=== PATIENT | male | born 2000 | race African-American/Black ===

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

== ENCOUNTER 2018-03-04 20:56 | Emergency (ER) | payer BC ==
[2018-03-04 21:21] VITALS: PULSE 97; RESP 18
[2018-03-04] MEDS ORDERED: metroNIDAZOLE 500 MG TAB PO STA (21:53)
[2018-03-04] MEDS ORDERED: AZITHROMYCIN 500 MG TAB PO STA (21:53)
[2018-03-04] MEDS ORDERED: cefTRIAXone 250 MG VIAL IM STA (21:53)
[2018-03-04 22:12] LABS: Appearance,Urine Clear (Clear); Bilirubin,Urine Negative (Negative); Blood,Urine Negative (Negative); Color,Urine Light Yellow; Glucose,Urine (UA) Negative (Negative); Ketones,Urine Negative (Negative); Leukocyte Esterase,Urine Negative (Negative); Nitrite,Urine Negative (Negative); Protein,Urine Negative (Negative); Specific Gravity,Urine 1.007 (1.001-1.035); Urobilinogen,Urine <2.0 mg/dL (<2.0)
--- NOTE | 2018-03-04 22:20 | ED ---
Male Urogenital HPI - General Chief complaint: Urogenital Stated complaint: Urogenital Time Seen by Provider: 03/04/18 21:53 Source: patient Mode of arrival: ambulatory Limitations: no limitations - History of Present Illness Initial comments: Patient is a 17-year-old male who presents to the emergency department today for sexual transmitted infections testing and treatment. Patient was notified by his sexual partner that she was positive for gonorrhea and advised to come to the hospital for evaluation. Patient was treated for an area months ago, he does report that he has been experiencing some dysuria for the past few weeks. He denies any penile discharge. Patient denies any other complaints. - Related Data Home Medications Medication Instructions Recorded Confirmed No Known Home Medications [No 03/04/18 03/04/18 Known Home Medications] Allergies Allergy/AdvReac Type Severity Reaction Status Date / Time shellfish derived [Shrimp] Allergy Anaphylaxis Verified 03/04/18 21:55 Review of Systems ROS Statement: Those systems with pertinent positive or pertinent negative responses have been documented in the HPI. ROS Other: All systems not noted in ROS Statement are negative. Past Medical History Past Medical History: Asthma History of Any Multi-Drug Resistant Organisms: None Reported Past Surgical History: No Surgical Hx Reported Past Psychological History: No Psychological Hx Reported Smoking Status: Never smoker Past Alcohol Use History: None Reported Past Drug Use History: None Reported General Exam Limitations: no limitations General appearance: alert, in no apparent distress Head exam: Present: atraumatic, normocephalic Eye exam: Present: normal appearance, PERRL ENT exam: Present: normal exam Neck exam: Present: normal inspection Respiratory exam: Absent: respiratory distress Cardiovascular Exam: Present: regular rate GI/Abdominal exam: Absent: distended Rectal exam: Present: deferred Extremities exam: Present: full ROM Back exam: Present: full ROM Neurological exam: Present: alert, oriented X3, normal gait Psychiatric exam: Present: normal affect, normal mood Skin exam: Present: warm, dry Course Vital Signs 03/04/18 21:18 Temperature 99.4 F Pulse Rate 97 Respiratory 18 Rate Blood Pressure 129/62 O2 Sat by Pulse 100 Oximetry Medical Decision Making - Medical Decision Making The patient was seen and examined, patient previously treated for gonorrhea, now his sexual partner was positive for gonorrhea. Patient requesting testing and treatment. Gonorrhea and chlamydia PCR is were ordered Rocephin, azithromycin and Flagyl were ordered for treatment Patient was advised to abstain from sexual intercourse for 7 days after treatment. He was encouraged to follow up with the health department for repeat testing to ensure that he is negative after treatment. All questions pertaining to care were answered the best my ability patient was discharged home in stable condition. - Lab Data Lab Results 03/04/18 Range/Units 21:55 Urine Color Light Yellow Urine Appearance Clear (Clear) Urine pH 7.0 (5.0-8.0) Ur Specific [place] 1.007 (1.001-1.035) Urine Protein Negative (Negative) Urine Glucose (UA) Negative (Negative) Urine Ketones Negative (Negative) Urine Blood Negative (Negative) Urine Nitrite Negative (Negative) Urine Bilirubin Negative (Negative) Urine Urobilinogen <2.0 (<2.0) mg/dL Ur Leukocyte Esterase Negative (Negative) Disposition Clinical Impression: Exposure to sexually transmitted disease (STD) Disposition: HOME SELF-CARE Condition: Good Instructions: Sexually Transmitted Diseases (ED), Condom Use (ED), Safe Sex (ED ) Is patient prescribed a controlled substance at d/c from ED?: No If prescribed controlled substance>3 days was MAPS reviewed?: No When asked, does pt state using other controlled substances?: No Referrals: Leticia Arteaga MD [Primary Care Provider] - 1-2 days Time of Disposition: 23:04
[2018-03-04 23:05] VITALS: BP 120/61; TEMP 98.4
[2018-03-07 13:35] LABS: C. trachomatis,PCR Negative (Neg,Equiv); Chlamydia trachomatis Source Urine
[2018-03-07 13:37] LABS: N. gonorrhoeae,PCR Negative (Neg,Equiv); Neisseria Source Urine
== END 2018-03-04 23:09 | disposition home or self-care (01) ==
LOC: EC 20:56
DX: Z20.2 Contact with and (suspected) exposure to infections with a predominantly sexual mode of transmission (principal); R30.0 Dysuria; Z91.013 Allergy to seafood
CPT/HCPCS: 81003; 87491; 87591; 99283; 96372; J0696

== ENCOUNTER 2018-07-22 19:22 | Emergency (ER) | payer BC ==
[2018-07-22] MEDS ORDERED: ACETAMINOPHEN TAB 500 MG TAB PO STA (20:22)
[2018-07-22] MEDS ORDERED: IBUPROFEN 800 MG TAB PO STA (20:22)
--- NOTE | 2018-07-22 21:19 | XR ---
EXAMINATION TYPE: XR chest 2V DATE OF EXAM: 07/22/2018 COMPARISON: NONE HISTORY: Cough TECHNIQUE: Frontal and lateral views of the chest are obtained. FINDINGS: Heart and mediastinum are normal. Lungs are clear. Diaphragm is normal. Bony thorax appear s normal. IMPRESSION: Normal chest
[2018-07-22 22:29] VITALS: BP 120/55; PULSE 95; RESP 16; TEMP 100.6
--- NOTE | 2018-07-22 22:34 | ED ---
General Adult HPI - General Source: patient, RN notes reviewed Mode of arrival: ambulatory Limitations: no limitations <Ambrose Gamble P - Last Filed: 07/22/18 22:34> <Claire Antunez P - Last Filed: 07/23/18 02:42> - General Chief complaint: Upper Respiratory Infection Stated complaint: cough Time Seen by Provider: 07/22/18 19:58 - History of Present Illness Initial comments: 17-year-old male presents for a chief complaint of cold symptoms 3 hours. Patient states that 3 hours ago he started to develop sinus pressure, sore throat, and cough. Patient states he does have history of asthma. Patient denies productive cough and states it is dry. Patient has not had Motrin or Tylenol as of yet. Patient denies any abdominal pain. Patient has no other complaints at this time including shortness of breath, chest pain, abdominal pain, nausea or vomiting, headache, or visual changes. (Ambrose Gamble) - Related Data Previous Rx's Medication Instructions Recorded predniSONE 50 mg PO DAILY #3 tab 07/22/18 Allergies Allergy/AdvReac Type Severity Reaction Status Date / Time shellfish derived [Shrimp] Allergy Anaphylaxis Verified 07/22/18 20:01 Review of Systems ROS Other: All systems not noted in ROS Statement are negative. <Ambrose Gamble - Last Filed: 07/22/18 22:34> ROS Other: All systems not noted in ROS Statement are negative. <Claire Antunez P - Last Filed: 07/23/18 02:42> ROS Statement: Those systems with pertinent positive or pertinent negative responses have been documented in the HPI. Past Medical History Past Medical History: Asthma History of Any Multi-Drug Resistant Organisms: None Reported Past Surgical History: No Surgical Hx Reported Past Psychological History: No Psychological Hx Reported Smoking Status: Never smoker Past Alcohol Use History: None Reported Past Drug Use History: Marijuana <Ambrose Gamble P - Last Filed: 07/22/18 22:34> General Exam Limitations: no limitations General appearance: alert, in no apparent distress (Patient sitting up in bed alert and interactive) Head exam: Present: atraumatic, normocephalic, normal inspection Eye exam: Present: normal appearance, PERRL, EOMI. Absent: scleral icterus, conjunctival injection, periorbital swelling ENT exam: Present: normal oropharynx (Erythematous oropharynx, uvula midline, no tonsillar exudates noted bilaterally), mucous membranes moist, TM's normal bilaterally, normal external ear exam, other (Patient does appear nasally congested) Neck exam: Present: normal inspection, full ROM. Absent: tenderness, meningismus, lymphadenopathy Respiratory exam: Present: normal lung sounds bilaterally. Absent: respiratory distress, wheezes, rales, rhonchi, stridor Cardiovascular Exam: Present: regular rate, normal rhythm, normal heart sounds. Absent: systolic murmur, diastolic murmur, rubs, gallop, clicks GI/Abdominal exam: Present: soft, normal bowel sounds. Absent: distended, tenderness, guarding, rebound, rigid Extremities exam: Present: full ROM (Moving all extremities without difficulty) Neurological exam: Present: alert, oriented X3, CN II-XII intact Psychiatric exam: Present: normal affect, normal mood Skin exam: Present: warm, dry, intact, normal color. Absent: rash <Ambrose Gamble P - Last Filed: 07/22/18 22:34> Vital Signs 07/22/18 07/22/18 19:33 22:28 Temperature 102.3 F H 100.6 F H Pulse Rate 112 H 95 Respiratory 18 16 Rate Blood Pressure 104/58 120/55 O2 Sat by Pulse 98 97 Oximetry Medical Decision Making <Ambrsoe Gamble P - Last Filed: 07/22/18 22:34> <Claire Antunez P - Last Filed: 07/23/18 02:42> - Medical Decision Making 17-year-old male presents to the emergency department for a chief complaint of cough, congestion, sore throat 3 hours. Patient states all his symptoms started to occur after work. Patient denies any shortness of breath. Patient does have a history of asthma. No wheezing noted on exam. Oropharynx is erythematous without tonsillar exudates. Uvula midline. Tympanic membranes clear bilaterally. Temperature was 102.3 with a pulse rate of 112 on presentation to the emergency department. Patient was given Motrin and Tylenol and temperature decreased to 100.6 and pulse rate decreased to 95. Chest x-ray was negative for any pneumonia. Lungs are clear. Group A strep was negative. This patient does have a history of asthma he will be given a three-day course of prednisone. Heterophile is also drawn and patient will be contacted about results as he would rather do this instead of weight in the emergency department. I did discuss alternating Motrin and Tylenol every 3 hours with patient to decrease fever. I discussed returning to the emergency department if patient has any worsening symptoms that she is aware of. Otherwise he will follow-up with primary care. (Ambrose Gamble) I was available for consultation in the emergency department. The history and physical exam were done by the midlevel provider. I was consulted for this patient's care. I reviewed the case with the midlevel provider and based on their presentation of the patient, I agree with the assessment, medical decision making and plan of care as documented. (Claire Antunez) - Lab Data Lab Results 07/22/18 07/22/18 Range/Units 19:57 22:26 Heterophile Antibody Negative (Negative) Group A Strep Rapid Negative (Negative) Disposition Is patient prescribed a controlled substance at d/c from ED?: No Time of Disposition: 22:40 <Ambrose Gamble - Last Filed: 07/22/18 22:34> <Claire Antunez - Last Filed: 07/23/18 02:42> Clinical Impression: Upper respiratory infection Disposition: HOME SELF-CARE Condition: Good Instructions: Upper Respiratory Infection (ED) Additional Instructions: Please take prednisone as directed. Please alternate Motrin and Tylenol every 3 hours. Please return to the emergency department if you have any worsening symptoms. Otherwise follow-up with primary care in 1-2 days. Prescriptions: predniSONE 50 mg PO DAILY #3 tab Referrals: Leticia Arteaga MD [REFERRING] - 1-2 days
== END 2018-07-22 23:03 | disposition home or self-care (01) ==
LOC: EC 19:22 → SUPCPDRO 19:22 → EC 23:03
DX: J06.9 Acute upper respiratory infection, unspecified (principal); J45.909 Unspecified asthma, uncomplicated; Z91.013 Allergy to seafood
CPT/HCPCS: 36415; 71046; 86308; 87081; 87430; 99283

== ENCOUNTER 2019-10-13 17:01 | Emergency (ER) | payer BC, OTHER ==
[2019-10-13 17:13] VITALS: BP 111/62; PULSE 101; RESP 20; TEMP 98.1
[2019-10-13] MEDS ORDERED: CYCLOBENZAPRINE 10MG STARTER 3 TAB BTL PO STA (17:24)
[2019-10-13] MEDS ORDERED: KETOROLAC 30 MG/ML 1 ML VIAL IM STA (17:25)
--- NOTE | 2019-10-13 18:01 | XR ---
EXAMINATION TYPE: XR chest 2V DATE OF EXAM: 10/13/2019 COMPARISON: 07/22/2018 HISTORY: Cough TECHNIQUE: 2 views FINDINGS: Heart and mediastinum are normal. Lungs are clear. Diaphragm is normal. Bony thorax appears normal. IMPRESSION: Normal chest. No change.
--- NOTE | 2019-10-13 18:16 | ED ---
Back Pain HPI - General Chief Complaint: Back Pain/Injury Stated Complaint: Back pain/injury-[facility] Source: patient Limitations: no limitations - History of Present Illness Initial Comments: 18-year-old male presents today for chief complaint of right mid back pain. Patient states he thinks he strained a muscle he was at work lifting a heavy roll carpeting when he felt a pop and straining the right side of his back. Patient states it feels that he pulled something. Patient states he twisted or turned her touch the specific region of the back he can reproduce the pain. States is sharp in nature. Patient denies any chest pain or difficulty breathing. Patient states this happened at work as instructed to come to the emergency Department patient has no other complaints appears well upon arrival d enies any low back pain loss bowel bladder control urinary retention IV drug use history of cancer or fevers. - Related Data Previous Rx's Medication Instructions Recorded predniSONE 50 mg PO DAILY #3 tab 07/22/18 Allergies Allergy/AdvReac Type Severity Reaction Status Date / Time shellfish derived [Shrimp] Allergy Anaphylaxis Verified 10/13/19 17:13 Review of Systems ROS Statement: Those systems with pertinent positive or pertinent negative responses have been documented in the HPI. ROS Other: All systems not noted in ROS Statement are negative. Past Medical History Past Medical History: Asthma History of Any Multi-Drug Resistant Organisms: None Reported Past Surgical History: No Surgical Hx Reported Past Psychological History: No Psychological Hx Reported Smoking Status: Never smoker Past Alcohol Use History: None Reported Past Drug Use History: Marijuana General Exam - General Exam Comments Initial Comments: General: The patient is awake and alert, in no distress, and does not appear acutely ill. Eye: Pupils are equal, round and reactive to light, extra-ocular movements are intact. No nystagmus. There is normal conjunctiva bilaterally. No signs of icterus. Cardiovascular: There is a regular rate and rhythm. No murmur, rub or gallop is appreciated. Respiratory: Lungs are clear to auscultation, respirations are non-labored, breath sounds are equal. No wheezes, stridor, rales, or rhonchi. Musculoskeletal: Tender to palpation of the paravertebral muscles of the mid thoracic spine to the right. Small area roughly 2 x 3 cm that reproduces the pain. No crepitus. Patient Normal ROM, no tenderness. Strength 5/5. Sensation intact. Radial ulses equal bilaterally 2+. Neurological: A&O x 3. CN II-XII intact grossly, There are no obvious motor or sensory deficits. Coordination appears grossly intact. Speech is normal. Skin: Skin is warm and dry and no rashes or lesions are noted. Psychiatric: Cooperative, appropriate mood & affect, normal judgment. Limitations: no limitations Course Vital Signs 10/13/19 17:11 Temperature 98.1 F Pulse Rate 101 H Respiratory 20 Rate Blood Pressure 111/62 O2 Sat by Pulse 100 Oximetry Medical Decision Making - Medical Decision Making 18-year-old male presenting today for chief complaint of muscle strain. Patient did not pain prior to lifting a heavy roll of carpeting stated it occurred immediately after. Patient neurovascularly intact. Reproducible pain on physical examination. Chest x-ray revealed no pneumothorax or rib fracture. Patient was given Toradol and a muscle relaxer he is instructed to follow-up with primary care provider Wolf Snow's discussed otherwise if the patient still for discharge case discussed the type spider scribbled care plan at this time Disposition Clinical Impression: Strain of thoracic region, Muscle strain Disposition: HOME SELF-CARE Condition: Good Instructions (If sedation given, give patient instructions): Muscle Strain (ED) Additional Instructions: Please use medication as discussed. Please follow-up with family doctor in the next 2 days. Please return to emergency room if the symptoms increase or worsen or for any other concerns. Is patient prescribed a controlled substance at d/c from ED?: No Referrals: None,Stated [Primary Care Provider] - 1-2 days Time of Disposition: 18:16
== END 2019-10-13 18:35 | disposition home or self-care (01) ==
LOC: EC 17:01
DX: S29.012A Strain of muscle and tendon of back wall of thorax, initial encounter (principal); Z91.013 Allergy to seafood; X50.0XXA Overexertion from strenuous movement or load, initial encounter; Y92.69 Other specified industrial and construction area as the place of occurrence of the external cause; Y99.0 Civilian activity done for income or pay
CPT/HCPCS: 71046; 96372; 99283; J1885

== ENCOUNTER 2019-11-10 19:26 | Emergency (ER) | payer BC, OTHER ==
[2019-11-10 19:38] VITALS: BP 118/70; PULSE 102; RESP 20; TEMP 98
--- NOTE | 2019-11-10 21:14 | ED ---
Male Urogenital HPI - General Source: patient Mode of arrival: ambulatory Limitations: no limitations <Raman Geiger - Last Filed: 11/10/19 23:42> <Myrna Manning - Last Filed: 11/15/19 15:55> - General Chief complaint: Urogenital Stated complaint: Male Time Seen by Provider: 11/10/19 20:05 - History of Present Illness Initial comments: Patient is a 18-year-old male presenting to the emergency department with a chief complaint of a penile rash. Patient states he has noticed the rash about one week ago. Patient states he could've possibly been there for longer but he has not noticed it prior to that. Patient denies any itching or pain. Patient denies any erythema or discharge from the region. Patient denies any testicular pain or swelling. Patient has not been sexually active recently. He is not concerned for STDs. Denies taking medication to alleviate the symptoms. (Raman Geiger) - Related Data Previous Rx's Medication Instructions Recorded predniSONE 50 mg PO DAILY #3 tab 07/22/18 Allergies Allergy/AdvReac Type Severity Reaction Status Date / Time shellfish derived [Shrimp] Allergy Anaphylaxis Verified 11/10/19 19:38 Review of Systems ROS Other: All systems not noted in ROS Statement are negative. <Raman Geiger - Last Filed: 11/10/19 23:42> ROS Other: All systems not noted in ROS Statement are negative. <Myrna Manning - Last Filed: 11/15/19 15:55> ROS Statement: Those systems with pertinent positive or pertinent negative responses have been documented in the HPI. Past Medical History Past Medical History: Asthma History of Any Multi-Drug Resistant Organisms: None Reported Past Surgical History: No Surgical Hx Reported Past Psychological History: No Psychological Hx Reported Smoking Status: Never smoker Past Alcohol Use History: None Reported Past Drug Use History: Marijuana <Raman Geiger - Last Filed: 11/10/19 23:42> General Exam Limitations: no limitations General appearance: alert, in no apparent distress Head exam: Present: atraumatic, normocephalic, normal inspection Eye exam: Present: normal appearance, PERRL, EOMI Pupils: Present: normal accommodation ENT exam: Present: normal exam, normal oropharynx, mucous membranes moist, TM's normal bilaterally, normal external ear exam Neck exam: Present: normal inspection, full ROM Respiratory exam: Present: normal lung sounds bilaterally Cardiovascular Exam: Present: regular rate, normal rhythm, normal heart sounds exam: Present: normal inspection (1 cm diameter lesion on the shaft of the penis that appears like a keloid. No discharge or erythema or tenderness.). Absent: testicular tenderness, urethral discharge, scrotal swelling Extremities exam: Present: normal inspection, full ROM Back exam: Present: normal inspection, full ROM Neurological exam: Present: alert, oriented X3 Psychiatric exam: Present: normal affect, normal mood Skin exam: Present: warm, dry, intact, normal color <Raman Geiger - Last Filed: 11/10/19 23:42> Course Vital Signs 11/10/19 19:36 Temperature 98 F Pulse Rate 102 H Respiratory 20 Rate Blood Pressure 118/70 O2 Sat by Pulse 98 Oximetry Medical Decision Making <Raman Geiger - Last Filed: 11/10/19 23:42> <Myrna Manning - Last Filed: 11/15/19 15:55> - Medical Decision Making Patient is a 18-year-old male presenting to the emergency department with a chief complaint of penile lesion. On exam patient has a 1 cm diameter penile lesion that is smooth and appears to be acutely. Patient denies any trauma to the region. The lesion is not painful nor itchy. No inguinal lymph nodes appreciated. UA is unremarkable. Patient advised to follow-up with urology. Strict return parameters were thoroughly discussed the patient was understanding and agreeable. Dr. Manning also examined the patient and is in agreement with the treatment plan. (Raman Geiger) I was available for consultation in the emergency department. The history and physical exam were done by the midlevel provider. I was consulted for this patients care. I reviewed the case with the midlevel provider and based on their presentation of the patient, I agree with the assessment, medical decision making and plan of care as documented. I evaluated the patient myself. Lesion appears to be a granuloma. No vesicular lesions. No penile discharge or bleeding. Chart was dictated using xAd dictation software. Attempts were made to correct any dictation errors however some typographical errors may persist. (Myrna Manning) - Lab Data Lab Results 01/17/20 Range/Units 21:10 Urine Color Yellow Urine Appearance Cloudy (Clear) Urine pH 6.5 (5.0-8.0) Ur Specific [place] 1.019 (1.001-1.035) Urine Protein 1+ H (Negative) Urine Glucose (UA) Negative (Negative) Urine Ketones Negative (Negative) Urine Blood Negative (Negative) Urine Nitrite Negative (Negative) Urine Bilirubin Negative (Negative) Urine Urobilinogen <2.0 (<2.0) mg/dL Ur Leukocyte Esterase Negative (Negative) Urine RBC 1 (0-5) /hpf Urine WBC 4 (0-5) /hpf Urine Bacteria Rare H (None) /hpf Urine Mucus Rare H (None) /hpf Urine Yeast (Budding) Few H (None) /hpf Disposition Is patient prescribed a controlled substance at d/c from ED?: No Time of Disposition: 21:14 <Raman Geiger - Last Filed: 11/10/19 23:42> <Myrna Manning - Last Filed: 11/15/19 15:55> Clinical Impression: Penile lesion Disposition: HOME SELF-CARE Condition: Stable Instructions (If sedation given, give patient instructions): Frannie (ED) Additional Instructions: Please follow-up with urology. Please return to emergency department if symptoms worsen. Referrals: None,Stated [Primary Care Provider] - 1-2 days Fransico Black MD [STAFF PHYSICIAN] - 1-2 days
[2019-11-10 21:33] LABS: Appearance,Urine Cloudy (Clear); Bacteria,Urine Rare /hpf; Bilirubin,Urine Negative (Negative); Blood,Urine Negative (Negative); Budding Yeast,Urine Few /hpf; Color,Urine Yellow; Glucose,Urine (UA) Negative (Negative); Ketones,Urine Negative (Negative); Leukocyte Esterase,Urine Negative (Negative); Mucus,Urine Rare /hpf; Nitrite,Urine Negative (Negative); PH, Urine 6.5 (5.0-8.0); Protein,Urine 1+ (Negative); RBC,Urine 1 /hpf (0-5); Specific Gravity,Urine 1.019 (1.001-1.035); Urobilinogen,Urine <2.0 mg/dL (<2.0); WBC,Urine 4 /hpf (0-5)
== END 2019-11-10 21:28 | disposition home or self-care (01) ==
LOC: EC 19:26
DX: N48.9 Disorder of penis, unspecified (principal); Z91.013 Allergy to seafood
CPT/HCPCS: 81001; 99282

== ENCOUNTER 2020-02-05 21:49 | Emergency (ER) | payer OTHER ==
[2020-02-05 21:59] VITALS: RESP 18
[2020-02-05] MEDS ORDERED: ACETAMINOPHEN ORAL SUSP 160 MG/5 ML CUP PO ONE (23:06)
--- NOTE | 2020-02-05 23:14 | ED ---
General Adult HPI - General Chief complaint: Upper Respiratory Infection Stated complaint: Coughing up blood Time Seen by Provider: 02/05/20 22:01 Source: patient, RN notes reviewed, old records reviewed Mode of arrival: ambulatory Limitations: no limitations - History of Present Illness Initial comments: 19-year-old male patient previously for chief complaint of sore throat. Patient reports that he has been having some mucus drainage from his nose. He reports that when he spit that some of the mucus he noticed a few small specks of blood. He denies any blood disorders. Patient denies any coughing or chest pain or shortness of breath. Does report that his sore throat has been for approximately last 3 days. He denies any other complaints. Systemic: Pt denies fatigue, fever/chills, rash. Pt denies weakness, night sweats, weight loss. Neuro: Pt denies headache, visual disturbances, syncope or pre-syncope. HEENT: Pt denies ocular discharge or irritation, otalgia, rhinorrhea. Cardiopulmonary: Pt denies chest pain, SOB, heart palpitations, dyspnea on exertion. Abdominal/GI: Pt denies abdominal pain, n/v/d. : Pt denies dysuria, burning w/ urination, frequency/urgency. Denies new onset urinary or bowel incontinence. MSK: Pt denies myalgia, loss of strength or function in extremities. Neuro: Pt denies new onset weakness, paresthesias. - Related Data Home Medications Medication Instructions Recorded Confirmed Acetaminophen [Tylenol] 650 mg PO Q6H PRN 02/05/20 02/05/20 Allergies Allergy/AdvReac Type Severity Reaction Status Date / Time shellfish derived [Shrimp] Allergy Anaphylaxis Verified 02/05/20 23:01 Review of Systems ROS Statement: Those systems with pertinent positive or pertinent negative responses have been documented in the HPI. ROS Other: All systems not noted in ROS Statement are negative. Past Medical History Past Medical History: Asthma History of Any Multi-Drug Resistant Organisms: None Reported Past Surgical History: No Surgical Hx Reported Past Psychological History: No Psychological Hx Reported Smoking Status: Never smoker Past Alcohol Use History: Occasional Past Drug Use History: Marijuana General Exam - General Exam Comments Initial Comments: Constitutional: NAD, AOX3, Pt has pleasant affect. HEENT: NC/AT, trachea midline, neck supple, no lymphadenopathy. Posterior p harynx mildly erythematous, without exudates. Small tonsillar stone noted. External ears appear normal, without discharge. Mucous membranes moist. Eyes PERRLA, EOM intact. There is no scleral icterus. No pallor noted. Cardiopulmonary: RRR, no murmurs, rubs or gallops, no JVD noted. Lungs CTAB in anterior and posterior xiong. No peripheral edema. Abdominal exam: Abdomen soft and non-distended. Abdomen non-tender to palpation in all 4 quadrants. Bowel sounds active in LLQ. No hepatosplenomegaly. No ecchymosis Neuro: CN II-XII grossly intact. No nuchal rigidity. No raccon eyes, no prather sign, no hemotympanum. No cervical spinal tenderness. MSK: No posterior calf tenderness bilaterally, homans sign negative bilaterally. Posterior tibialis and radial pulse +2 bilaterally. Sensation intact in upper and lower extremities. Full active ROM in upper and lower extremities, 5/5 stregnth. Limitations: no limitations Course Vital Signs 02/05/20 21:54 Temperature 98.8 F Pulse Rate 88 Respiratory 18 Rate Blood Pressure 126/72 O2 Sat by Pulse 98 Oximetry Medical Decision Making - Medical Decision Making 19-year-old male patient previously for chief complaint of sore throat. Patient reports that he has been having some mucus drainage from his nose. He reports that when he spit that some of the mucus he noticed a few small specks of blood. He denies any blood disorders. Patient denies any coughing or chest pain or shortness of breath. Does report that his sore throat has been for approximately last 3 days. He denies any other complaints. Patient also just a little afebrile. Physical exam displayed posterior proximal erythematous exudate small tonsillar stone is noted. The strep was negative. Patient will be discharged to follow up with primary care provider will return here physician worsens. Case discussed with Dr. Manning. - Lab Data Lab Results 02/05/20 Range/Units 22:30 Group A Strep Rapid Negative (Negative) Disposition Clinical Impression: Pharyngitis, Tonsil stone Disposition: HOME SELF-CARE Condition: Stable Instructions (If sedation given, give patient instructions): Pharyngitis (ED) Additional Instructions: Follow-up with primary care provider tomorrow. May use tylenol or Motrin as needed for discomfort. Return to ER if condition worsens in any way. Is patient prescribed a controlled substance at d/c from ED?: No Referrals: None,Stated [Primary Care Provider] - 1-2 days [facility] [NON-STAFF] - 1-2 days
[2020-02-05 23:23] VITALS: BP 122/84; PULSE 70; TEMP 98.6
== END 2020-02-05 23:19 | disposition home or self-care (01) ==
LOC: EC 21:49
DX: J02.9 Acute pharyngitis, unspecified (principal); J35.8 Other chronic diseases of tonsils and adenoids; Z91.013 Allergy to seafood
CPT/HCPCS: 87081; 87430; 99283

== ENCOUNTER 2020-07-21 20:10 | Emergency (ER) | payer OTHER ==
[2020-07-21 20:19] VITALS: RESP 18
[2020-07-21] MEDS ORDERED: SODIUM CHLORIDE 0.9% 1,000 ML IV ONE (20:53)
[2020-07-21 21:23] LABS: Basophils % (A) 1 %; Eosinophils # (A) 0.2 k/uL (0-0.7); Eosinophils % (A) 4 %; HCT 48.5 % (39.0-53.0); HGB 16.2 gm/dL (13.0-17.5); Lymphocytes # (A) 2.1 k/uL (1.0-4.8); Lymphocytes % (A) 42 %; MCH 30.2 pg (25.0-35.0); MCHC 33.4 g/dL (31.0-37.0); MCV 90.4 fL (80.0-100.0); Mean Platelet Volume 6.4; Monocytes # (A) 0.4 k/uL (0-1.0); Monocytes % (A) 8 %; Neutrophils # (A) 2.2 k/uL (1.3-7.7); Neutrophils % (A) 42 %; Platelet Count 210 k/uL (150-450); RBC 5.37 m/uL (4.30-5.90); RDW 11.5 % (11.5-15.5); WBC 5.1 k/uL (3.8-10.6)
[2020-07-21 21:32] LABS: Albumin 4.3 g/dL (3.5-5.0); Chloride 105 mmol/L (98-107); Glucose 85 mg/dL (74-99); Total Protein 7.3 g/dL (6.3-8.2)
[2020-07-21 21:33] LABS: ALT 17 U/L (4-49); AST 27 U/L (17-59); African American GFR (CKD) >90 (>60 ml/min/1.73 sqM); Alkaline Phosphatase 85 U/L (38-126); Anion Gap 4 mmol/L; Blood Urea Nitrogen 16 mg/dL (9-20); Calcium 9.5 mg/dL (8.4-10.2); Carbon Dioxide 29 mmol/L (22-30); Magnesium 2.1 mg/dL (1.6-2.3); Non-African American GFR(CKD) >90 (>60 ml/min/1.73 sqM); Potassium 4.3 mmol/L (3.5-5.1); Sodium 138 mmol/L (137-145); Total Bilirubin 0.8 mg/dL (0.2-1.3)
--- NOTE | 2020-07-21 21:58 | ED ---
General Adult HPI - General Chief complaint: Recheck/Abnormal Lab/Rx Stated complaint: Neurological Issue in Extremities Time Seen by Provider: 07/21/20 20:38 Source: patient Mode of arrival: ambulatory Limitations: no limitations - History of Present Illness Initial comments: 19-year-old male patient presents to the emergency department today for evalua tion of paresthesia to the bilateral hands and feet. Patient states that from the elbow down from the knee down he has a numb feeling to his hands and feet. States that has been present for the last month. States prior to this it was happening intermittently. Patient states he also feels rundown today and has slept for most of the day. Patient denies any injuries. Denies any use of medications. Does admits smoking marijuana. Denies alcohol use. Patient has not had this evaluated by his physician. Patient states he is still able to move the limbs without difficulty but states that he is unable to feel like he is doing. Patient states that he can feel pain to the areas. Denies any fever or chills. Denies any back injuries. Patient denies any recent rash, cough, shortness of breath, chest pain, abdominal pain, nausea, vomiting, diarrhea, constipation, back pain, dizziness, weakness, hematuria, dysuria, urinary urgency, urinary frequency, headache, visual changes, or any other complaints. - Related Data Home Medications Medication Instructions Recorded Confirmed Acetaminophen [Tylenol] 650 mg PO Q6H PRN 02/05/20 02/05/20 Allergies Allergy/AdvReac Type Severity Reaction Status Date / Time shellfish derived [Shrimp] Allergy Anaphylaxis Verified 07/21/20 20:19 Review of Systems ROS Statement: Those systems with pertinent positive or pertinent negative responses have been documented in the HPI. ROS Other: All systems not noted in ROS Statement are negative. Past Medical History Past Medical History: Asthma History of Any Multi-Drug Resistant Organisms: None Reported Past Surgical History: No Surgical Hx Reported Past Psychological History: No Psychological Hx Reported Smoking Status: Current every day smoker Past Alcohol Use History: Occasional Past Drug Use History: Marijuana General Exam Limitations: no limitations General appearance: alert, in no apparent distress, other Eye exam: Present: normal appearance, PERRL, EOMI. Absent: scleral icterus, conjunctival injection, periorbital swelling ENT exam: Present: normal exam, normal oropharynx, mucous membranes moist Respiratory exam: Present: normal lung sounds bilaterally. Absent: respiratory distress, wheezes, rales, rhonchi, stridor Cardiovascular Exam: Present: regular rate, normal rhythm, normal heart sounds. Absent: systolic murmur, diastolic murmur, rubs, gallop, clicks GI/Abdominal exam: Present: soft, normal bowel sounds. Absent: distended, tenderness, guarding, rebound, rigid Extremities exam: Present: normal inspection, full ROM, normal capillary refill, other (Skin to the arms and legs is warm and dry. Cap refills less than 3 seconds. Pedal and posttibial pulses are 2+ and equal bilaterally. Radial pulses are 2+ and equal bilaterally.). Absent: tenderness, pedal edema, joint swelling, calf tenderness Neurological exam: Present: alert, oriented X3, CN II-XII intact, other (Strength in all 4 extremities is 5/5.) Psychiatric exam: Present: normal affect, normal mood Skin exam: Present: warm, dry, intact, normal color. Absent: rash Course Vital Signs 07/21/20 07/21/20 20:15 22:56 Temperature 98.0 F 97.8 F Pulse Rate 99 76 Respiratory 18 18 Rate Blood Pressure 113/65 111/75 O2 Sat by Pulse 99 99 Oximetry Medical Decision Making - Medical Decision Making 19-year-old male patient presents to the emergency department today for ev aluation of paresthesia to the forearm, hands, lower legs, and feet. Sensation is equal bilaterally. His been going on for a little over a month. Physical examination is unremarkable. He is neurologically intact with no focal deficits. He has good circulation to the extremities. Labs reviewed and are unremarkable. We did discuss findings and results of his labs. He'll be discharged follow up with his primary care physician to discuss referral to neurology and further imaging. We did discuss return parameters in detail. He verbalizes understanding and agrees with this plan. - Lab Data Result diagrams: 07/21/20 21:08 07/21/20 21:08 Lab Results 07/21/20 07/21/20 Range/Units 21:08 21:08 WBC 5.1 (3.8-10.6) k/uL RBC 5.37 (4.30-5.90) m/uL Hgb 16.2 (13.0-17.5) gm/dL Hct 48.5 (39.0-53.0) % MCV 90.4 (80.0-100.0) fL MCH 30.2 (25.0-35.0) pg MCHC 33.4 (31.0-37.0) g/dL RDW 11.5 (11.5-15.5) % Plt Count 210 (150-450) k/uL Neutrophils % 42 % Lymphocytes % 42 % Monocytes % 8 % Eosinophils % 4 % Basophils % 1 % Neutrophils # 2.2 (1.3-7.7) k/uL Lymphocytes # 2.1 (1.0-4.8) k/uL Monocytes # 0.4 (0-1.0) k/uL Eosinophils # 0.2 (0-0.7) k/uL Basophils # 0.0 (0-0.2) k/uL Sodium 138 (137-145) mmol/L Potassium 4.3 (3.5-5.1) mmol/L Chloride 105 (98-107) mmol/L Carbon Dioxide 29 (22-30) mmol/L Anion Gap 4 mmol/L BUN 16 (9-20) mg/dL Creatinine 0.92 (0.66-1.25) mg/dL Est GFR (CKD-EPI)AfAm >90 (>60 ml/min/1.73 sqM) Est GFR (CKD-EPI)NonAf >90 (>60 ml/min/1.73 sqM) Glucose 85 (74-99) mg/dL Calcium 9.5 (8.4-10.2) mg/dL Magnesium 2.1 (1.6-2.3) mg/dL Total Bilirubin 0.8 (0.2-1.3) mg/dL AST 27 (17-59) U/L ALT 17 (4-49) U/L Alkaline Phosphatase 85 (38-126) U/L Total Protein 7.3 (6.3-8.2) g/dL Albumin 4.3 (3.5-5.0) g/dL TSH 1.530 (0.465-4.680) mIU/L Disposition Clinical Impression: Paresthesia Disposition: HOME SELF-CARE Condition: Good Instructions (If sedation given, give patient instructions): Paresthesia (ED) Additional Instructions: Follow-up with your primary care physician to discuss possible referral to neurology or MRI. Return to the emergency department immediately for any new, worsening, or concerning symptoms. Is patient prescribed a controlled substance at d/c from ED?: No Referrals: Nghia Garner MD [Primary Care Provider] - 1-2 days Time of Disposition: 22:46
[2020-07-21 22:57] VITALS: BP 111/75; PULSE 76; TEMP 97.8
== END 2020-07-21 22:57 | disposition home or self-care (01) ==
LOC: EC 20:10
DX: R20.2 Paresthesia of skin (principal); F17.200 Nicotine dependence, unspecified, uncomplicated; Z91.013 Allergy to seafood
CPT/HCPCS: 36415; 80053; 82607; 83735; 84443; 85025; 96360; 99284

== ENCOUNTER 2020-08-14 15:36 | Emergency (ER) | payer OTHER ==
[2020-08-14 15:40] VITALS: RESP 16
--- NOTE | 2020-08-14 16:21 | XR ---
EXAMINATION TYPE: XR abdomen acute w cxr DATE OF EXAM: 08/14/2020 CLINICAL HISTORY: Chest and abdominal pain in particular right lower quadrant. TECHNIQUE: Single frontal view of chest is obtained. Supine and upright views of the abdomen are acq uired. COMPARISON: Chest x-ray October 13, 2019. FINDINGS: The lungs remain grossly clear without pleural effusion or pneumothorax. Occasional scatte red calcified nodule or granuloma redemonstrated. Cardiac silhouette size remains within normal limit s. Osseous structures are intact. Gas is noted in nondistended small bowel loops. Gas and fecal material is seen in nondistended colon . Occasional tiny pelvic phlebolith. No pneumoperitoneum, visceromegaly, or suspicious calcification is identified. The osseous structures are intact. IMPRESSION: 1. No acute pulmonary process. 2. Overall nonobstructive bowel gas pattern.
--- NOTE | 2020-08-14 16:50 | ED ---
General Adult HPI - General Chief complaint: Recheck/Abnormal Lab/Rx Stated complaint: poss food poisoning-work note Time Seen by Provider: 08/14/20 15:56 Source: patient, RN notes reviewed, old records reviewed Mode of arrival: ambulatory Limitations: no limitations - History of Present Illness Initial comments: 19-year-old male patient presents to ED for evaluation of abdominal discomfort. Reports that on Wednesday he called off work and had some abdominal cramping throughout the day. He does not have any nausea vomiting or diarrhea. He states that he called off work on Wednesday which is the main reason why he is comes to emergency department today to get a work note. He states that his abdomen is feeling significantly improved. He denies any other symptoms. Systemic: Pt denies fatigue, fever/chills, rash. Pt denies weakness, night sweats, weight loss. Neuro: Pt denies headache, visual disturbances, syncope or pre-syncope. HEENT: Pt denies ocular discharge or irritation, otalgia, rhinorrhea, pharyngitis or notable lymphadenopathy. Cardiopulmonary: Pt denies chest pain, SOB, heart palpitations, dyspnea on exertion. Abdominal/GI: Pt denies n/v/d. : Pt denies dysuria, burning w/ urination, frequency/urgency. Denies new onset urinary or bowel incontinence. MSK: Pt denies myalgia, loss of strength or function in extremities. Neuro: Pt denies new onset weakness, paresthesias. - Related Data Home Medications Medication Instructions Recorded Confirmed Acetaminophen [Tylenol] 650 mg PO Q6H PRN 02/05/20 02/05/20 Allergies Allergy/AdvReac Type Severity Reaction Status Date / Time shellfish derived [Shrimp] Allergy Anaphylaxis Verified 08/14/20 15:38 Review of Systems ROS Statement: Those systems with pertinent positive or pertinent negative responses have been documented in the HPI. ROS Other: All systems not noted in ROS Statement are negative. Past Medical History Past Medical History: Asthma History of Any Multi-Drug Resistant Organisms: None Reported Past Surgical History: No Surgical Hx Reported Past Psychological History: No Psychological Hx Reported Smoking Status: Current every day smoker Past Alcohol Use History: Occasional Past Drug Use History: Marijuana General Exam - General Exam Comments Initial Comments: Constitutional: NAD, AOX3, Pt has pleasant affect. HEENT: NC/AT, trachea midline, neck supple, no lymphadenopathy. External ears appear normal, without discharge. Mucous membranes moist. Eyes PERRLA, EOM intact. There is no scleral icterus. No pallor noted. Cardiopulmonary: RRR, no murmurs, rubs or gallops, no JVD noted. Lungs CTAB in anterior and posterior xiong. No peripheral edema. Abdominal exam: Abdomen soft and non-distended. Abdomen mildly tender to palpation in epigastric region. Bowel sounds active in LLQ. No hepatosplenomegaly. No ecchymosis Neuro: CN II-XII grossly intact. No nuchal rigidity. No raccon eyes, no prather sign, no hemotympanum. No cervical spinal tenderness. MSK: Full active ROM in upper and lower extremities, 5/5 stregnth. Limitations: no limitations Course Vital Signs 08/14/20 15:38 Temperature 98.0 F Pulse Rate 103 H Respiratory 16 Rate Blood Pressure 131/69 O2 Sat by Pulse 99 Oximetry Medical Decision Making - Medical Decision Making 19-year-old male patient to ED per working out and abdominal pain. Patient will signs are stable, afebrile. Physical exam displayed very mild amount of tenderness to epigastric region. Patient declining any blood work or laboratory investigations. X-ray was performed which displayed a nonobstructive bowel gas pattern no acute pulmonary process. Patient will follow up with primary care provider and return to ER if any worsening symptoms. Case discussed with Dr. Manning. Disposition Clinical Impression: Abdominal cramping, Abdominal pain Disposition: HOME SELF-CARE Condition: Stable Instructions (If sedation given, give patient instructions): Abdominal Pain (ED) Additional Instructions: Follow up with primary care provider tomorrow. Return to ER if any worsening symptoms. Is patient prescribed a controlled substance at d/c from ED?: No Referrals: None,Stated [Primary Care Provider] - 1-2 days Leticia Arteaga MD [REFERRING] - 1-2 days
[2020-08-14 17:14] VITALS: BP 140/74; PULSE 69; TEMP 98.7
== END 2020-08-14 17:13 | disposition home or self-care (01) ==
LOC: EC 15:36
DX: R10.9 Unspecified abdominal pain (principal); F17.200 Nicotine dependence, unspecified, uncomplicated; Z91.013 Allergy to seafood
CPT/HCPCS: 74022; 99284

== ENCOUNTER → 2020-10-11 | Outpatient (CLI) | payer OTHER ==
--- NOTE | 2020-10-11 12:38 | XR ---
EXAMINATION TYPE: XR lumbar spine 2 or 3V DATE OF EXAM: 10/11/2020 COMPARISON: None HISTORY: Pain TECHNIQUE: Three-view lumbar spine FINDINGS: 5 lumbar-type vertebral bodies are present. Pedicles are intact. Disc heights are preserved . Vertebral body heights are preserved. IMPRESSION: 1. Normal three-view lumbar spine
--- NOTE | 2020-10-11 16:02 | XR ---
EXAMINATION TYPE: XR thoracic spine complete DATE OF EXAM: 10/11/2020 COMPARISON: None HISTORY: Pain TECHNIQUE: Three-view thoracic spine FINDINGS: There are 12 thoracic type vertebral bodies. The pedicles are intact. Disc heights are pres erved. Vertebral body heights are preserved. IMPRESSION: 1. Normal three-view thoracic spine
--- NOTE | 2020-10-11 16:03 | XR ---
EXAMINATION TYPE: XR cervical spine comp DATE OF EXAM: 10/11/2020 COMPARISON: None HISTORY: Pain TECHNIQUE: Five-view cervical spine FINDINGS: Prevertebral space is normal. Disc heights appear preserved. Vertebral body heights are pre served. Posterior spinal lamellar line is intact. Mild facet degenerative changes present on the left C3-4 C4-5. IMPRESSION: 1. Mild left foraminal narrowing. 2. No acute osseous abnormality.
== END | disposition home or self-care (01) ==
LOC: RADXRMAIN 11:29
PROVIDERS: ATTEND Psychiatry & Neurology Psychiatry
DX: M48.02 Spinal stenosis, cervical region (principal); M54.5 Low back pain
CPT/HCPCS: 72050; 72072; 72100

== ENCOUNTER 2021-01-26 09:46 | Emergency (ER) | payer OTHER ==
[2021-01-26 09:59] VITALS: TEMP 98.1
--- NOTE | 2021-01-26 10:53 | ED ---
Back Pain HPI - General Chief Complaint: Back Pain/Injury Stated Complaint: back pain Time Seen by Provider: 01/26/21 10:09 Source: patient, RN notes reviewed Limitations: no limitations - History of Present Illness Initial Comments: 20-year-old male presents emergency Department chief complaint of low back pain. This been ongoing over a year. Patient it's worse when he is at work. Patient states is better at rest. Denies any bowel, bladder incontinence or retention or saddle anesthesias. No abdominal complaints. Patient states that he's had no radicular symptoms. Patient has not been evaluated for his back pain denies any recent falls. No difficult and bleeding. Patient states that he also exposure to go over and is requesting testing. - Related Data Home Medications Medication Instructions Recorded Confirmed Acetaminophen [Tylenol] 650 mg PO Q6H PRN 02/05/20 02/05/20 Allergies Allergy/AdvReac Type Severity Reaction Status Date / Time shellfish derived [Shrimp] Allergy Anaphylaxis Verified 01/26/21 09:58 Review of Systems ROS Statement: Those systems with pertinent positive or pertinent negative responses have been documented in the HPI. ROS Other: All systems not noted in ROS Statement are negative. Past Medical History Past Medical History: Asthma History of Any Multi-Drug Resistant Organisms: None Reported Past Surgical History: No Surgical Hx Reported Past Psychological History: No Psychological Hx Reported Smoking Status: Current every day smoker Past Alcohol Use History: Occasional Past Drug Use History: Marijuana General Exam Limitations: no limitations General appearance: alert, in no apparent distress Head exam: Present: atraumatic, normocephalic, normal inspection Eye exam: Present: normal appearance, PERRL, EOMI. Absent: scleral icterus, conjunctival injection, periorbital swelling ENT exam: Present: normal exam, normal oropharynx, mucous membranes moist Neck exam: Present: normal inspection, full ROM. Absent: tenderness, meningismus, lymphadenopathy Respiratory exam: Present: normal lung sounds bilaterally. Absent: respiratory distress, wheezes, rales, rhonchi, stridor Cardiovascular Exam: Present: regular rate, normal rhythm, normal heart sounds. Absent: systolic murmur, diastolic murmur, rubs, gallop, clicks GI/Abdominal exam: Present: soft, normal bowel sounds. Absent: distended, tenderness, guarding, rebound, rigid Extremities exam: Present: other (Lower extremity strength equal bilaterally neurovascular intact pulses) Back exam: Present: full ROM, tenderness, paraspinal tenderness. Absent: vertebral tenderness Neurological exam: Present: alert, oriented X3, CN II-XII intact, reflexes normal. Absent: motor sensory deficit Skin exam: Present: warm, dry, intact, normal color. Absent: rash Course Vital Signs 01/26/21 09:56 Temperature 98.1 F Pulse Rate 92 Respiratory 18 Rate Blood Pressure 114/69 O2 Sat by Pulse 100 Oximetry Medical Decision Making - Medical Decision Making 20-year-old male presented for low back pain chronic in nature. X-rays negative. Patient is negative for covid testing. Patient discharged to admission return parameters were discussed. - Lab Data Lab Results 01/26/21 Range/Units 10:36 Coronavirus (PCR) Not Detected (Not Detectd) Disposition Clinical Impression: Encounter for laboratory testing for COVID-19 virus, Back pain Disposition: HOME SELF-CARE Condition: Stable Instructions (If sedation given, give patient instructions): Acute Low Back Pain (ED) Additional Instructions: Please return to the Emergency Department if symptoms worsen or any other concerns. Is patient prescribed a controlled substance at d/c from ED?: No Referrals: None,Stated [Primary Care Provider] - 1-2 days Franki Cheng DO [Doctor of Osteopathic Medicine] - 1-2 days Time of Disposition: 11:48
--- NOTE | 2021-01-26 11:22 | XR ---
EXAMINATION TYPE: XR lumbar spine 2 or 3V DATE OF EXAM: 01/26/2021 Comparison: 10/11/2020 Clinical History: 20-year-old male with pain Findings: 5 lumbar type vertebral bodies. Vertebral body heights are preserved and alignment is maintained. The re is some straightening of the normal lumbar lordosis. Impression: There is straightening of the normal lumbar lordosis may be positional or due to muscle spasm. No aby tebral compression collapse or malalignment.
[2021-01-26 11:59] VITALS: BP 124/68; PULSE 75; RESP 20
== END 2021-01-26 11:59 | disposition home or self-care (01) ==
LOC: EC 09:46
DX: M54.5 Low back pain (principal); Z01.84 Encounter for antibody response examination; F17.200 Nicotine dependence, unspecified, uncomplicated; Z20.822 Contact with and (suspected) exposure to COVID-19
CPT/HCPCS: 72100; 87635; 99283

== ENCOUNTER → 2022-05-21 | Outpatient (CLI) | payer OTHER ==
--- NOTE | 2022-05-21 15:07 | US ---
EXAMINATION TYPE: US abdomen complete DATE OF EXAM: 05/21/2022 COMPARISON: NONE CLINICAL HISTORY: 21-year-old male R10.13 EPIGASTRIC PAIN. TECHNIQUE: Multiple sonographic images of the abdomen are obtained. FINDINGS: EXAM MEASUREMENTS: Liver Length: 14.8 cm Gallbladder Wall: 0.2 cm CBD: 0.15 cm Spleen: 9.9 cm Right Kidney: 10.5 x 6.4 x 5.0 cm Left Kidney: 10.6 x 6.4 x 5.0 cm [employer] NOTES: Exam is limited due to gas. Pancreas: Slightly limited visibility of tail. The majority is visualized and shows no gross abnormal ity. Liver: Homogeneous appearance. No focal lesion. Gallbladder: Some minimal internal echoes are present, likely some focal floating debris. No shadowi ng stones, surrounding fluid, abnormal wall thickening, or hydropic change. Evidence for sonographic Paige's sign: No CBD: Portions seen appear wnl Spleen: Appears wnl Right Kidney: No hydronephrosis or masses seen Left Kidney: Limited visibility of lower pole. No hydronephrosis or masses seen Upper IVC: Appears wnl Abd Aorta: Appears wnl IMPRESSION: Some minimal floating debris in the gallbladder lumen. Otherwise, unremarkable sonographic examinatio n of the abdomen.
== END | disposition home or self-care (01) ==
LOC: RADUSWWP 10:15
PROVIDERS: ATTEND Family Medicine
DX: K82.8 Other specified diseases of gallbladder (principal)
CPT/HCPCS: 76700

== ENCOUNTER → 2022-07-21 | Outpatient (CLI) | payer OTHER ==
--- NOTE | 2022-07-21 13:48 | CT ---
EXAMINATION TYPE: CT brain wo con DATE OF EXAM: 07/21/2022 COMPARISON: None HISTORY: Paresthesia of skin CT DLP: 1144.[address] of the brain was performed. The ventricles, basal cisterns and sulci overlying the cerebral convexities demonstrate a normal appe arance. There is no evidence for intracranial hemorrhage or sulcal effacement. No mass effects are seen. Osseous calvarium is intact. If symptoms persist consider MRI as clinically warranted. IMPRESSION: 1. No acute intracranial process is seen at this time.
== END | disposition home or self-care (01) ==
LOC: RADCTMAIN 13:19
PROVIDERS: ATTEND Family Medicine
DX: R20.2 Paresthesia of skin (principal)
CPT/HCPCS: 70450

== ENCOUNTER 2023-01-22 02:57 | Emergency (ER) | payer OTHER ==
[2023-01-22 03:10] VITALS: BP 134/74; PULSE 115; RESP 18; TEMP 97.5
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
== END 2023-01-22 03:49 | disposition home or self-care (01) ==
LOC: EC 02:57
DX: S03.40XA Sprain of jaw, unspecified side, initial encounter (principal); S00.83XA Contusion of other part of head, initial encounter; J45.909 Unspecified asthma, uncomplicated; F17.200 Nicotine dependence, unspecified, uncomplicated; F12.90 Cannabis use, unspecified, uncomplicated; Z79.899 Other long term (current) drug therapy; Y04.0XXA Assault by unarmed brawl or fight, initial encounter
CPT/HCPCS: 99283

== ENCOUNTER 2023-02-01 23:14 | Emergency (ER) | payer OTHER ==
[2023-02-01 23:41] VITALS: TEMP 98.2
[2023-02-02 00:51] LABS: Basophils % (A) 0 %; Eosinophils # (A) 0.2 k/uL (0-0.7); Eosinophils % (A) 3 %; HCT 45.1 % (39.0-53.0); HGB 15.4 gm/dL (13.0-17.5); Lymphocytes # (A) 1.8 k/uL (1.0-4.8); Lymphocytes % (A) 32 %; MCH 31.7 pg (25.0-35.0); MCHC 34.3 g/dL (31.0-37.0); MCV 92.6 fL (80.0-100.0); Mean Platelet Volume 6.7; Monocytes # (A) 0.5 k/uL (0-1.0); Monocytes % (A) 8 %; Neutrophils # (A) 3.2 k/uL (1.3-7.7); Neutrophils % (A) 55 %; Platelet Count 219 k/uL (150-450); RBC 4.87 m/uL (4.30-5.90); RDW 12.2 % (11.5-15.5); WBC 5.8 k/uL (3.8-10.6)
[2023-02-02 01:04] LABS: ALT 21 U/L (4-49); AST 22 U/L (17-59); African American GFR (CKD) >90 (>60 ml/min/1.73 sqM); Alkaline Phosphatase 100 U/L (38-126); Anion Gap 3 mmol/L; Blood Urea Nitrogen 19 mg/dL (9-20); Calcium 9.3 mg/dL (8.4-10.2); Carbon Dioxide 30 mmol/L (22-30); Chloride 106 mmol/L (98-107); Glucose 93 mg/dL (74-99); Lipase 295 U/L (23-300); Non-African American GFR(CKD) >90 (>60 ml/min/1.73 sqM); Potassium 4.1 mmol/L (3.5-5.1); Sodium 139 mmol/L (137-145); Total Bilirubin 0.3 mg/dL (0.2-1.3); Total Protein 6.9 g/dL (6.3-8.2)
--- NOTE | 2023-02-02 02:31 | ED ---
General Adult HPI - General Chief complaint: Recheck/Abnormal Lab/Rx Stated complaint: Sharp Pain in stomach, vomiting, inflamed pancreas Time Seen by Provider: 02/02/23 01:29 Source: patient, RN notes reviewed Mode of arrival: ambulatory Limitations: no limitations - History of Present Illness Initial comments: 22-year-old male presents emergency Department with abdominal pain, nausea vomiting. Patient states she's had episodic symptoms throughout the weekend. He states it's usually associated with certain foods. Patient states she was recently emergency department had a CAT scan laboratory studies labs showed a present of mild pancreatitis. He denies any significant abdominal pain currently has no dysuria patient is requesting work note - Related Data Home Medications Medication Instructions Recorded Confirmed busPIRone HCL 10 mg PO TID PRN 12/30/22 12/30/22 Previous Rx's Medication Instructions Recorded Famotidine [Pepcid] 20 mg PO DAILY 7 Days #7 tablet 12/30/22 Ondansetron Odt [Zofran Odt] 4 mg PO Q8HR PRN 2 Days #6 tab 12/30/22 Omeprazole [PriLOSEC] 40 mg PO DAILY #14 cap 02/02/23 Ondansetron Odt [Zofran Odt] 4 mg PO Q8HR PRN #10 tab 02/02/23 Allergies Allergy/AdvReac Type Severity Reaction Status Date / Time shellfish derived [Shrimp] Allergy Anaphylaxis Verified 02/01/23 23:41 Review of Systems ROS Statement: Those systems with pertinent positive or pertinent negative responses have been documented in the HPI. ROS Other: All systems not noted in ROS Statement are negative. Past Medical History Past Medical History: Asthma History of Any Multi-Drug Resistant Organisms: None Reported Past Surgical History: No Surgical Hx Reported Past Psychological History: No Psychological Hx Reported Smoking Status: Current every day smoker Past Alcohol Use History: Occasional Past Drug Use History: Marijuana General Exam Limitations: no limitations General appearance: alert, in no apparent distress Head exam: Present: atraumatic, normocephalic, normal inspection Eye exam: Present: normal appearance, PERRL, EOMI. Absent: scleral icterus, conjunctival injection, periorbital swelling ENT exam: Present: normal exam, normal oropharynx, mucous membranes moist Neck exam: Present: normal inspection, full ROM. Absent: tenderness, meningismus, lymphadenopathy Respiratory exam: Present: normal lung sounds bilaterally. Absent: respiratory distress, wheezes, rales, rhonchi, stridor Cardiovascular Exam: Present: regular rate, normal rhythm, normal heart sounds. Absent: systolic murmur, diastolic murmur, rubs, gallop, clicks GI/Abdominal exam: Present: soft, normal bowel sounds. Absent: distended, tenderness, guarding, rebound, rigid Course Vital Signs 02/01/23 23:38 Temperature 98.2 F Pulse Rate 79 Respiratory 18 Rate Blood Pressure 103/67 O2 Sat by Pulse 99 Oximetry Medical Decision Making - Medical Decision Making Was pt. sent in by a medical professional or institution (, PA, CLAY TEMPERER, urgent care, hospital, or group home...) When possible be specific @ -No Did you speak to anyone other than the patient for history (EMS, parent, family, police, friend...)? What history was obtained from this source @ -No Did you review nursing and triage notes (agree or disagree)? Why? @ -I reviewed and agree with nursing and triage notes Were old charts reviewed (outside hosp., previous admission, EMS record, old EKG, old radiological studies, urgent care reports/EKG's, group home records)? Report findings @ -Reviewed recent laboratory studies and CT Differential Diagnosis (chest pain, altered mental status, abdominal pain women, abdominal pain men, vaginal bleeding, weakness, fever, dyspnea, syncope, head ache, dizziness, GI bleed, back pain, seizure, CVA, palpatations, mental health, musculoskeletal)? @ -nDifferential Abdominal Pain Men: Appendicitis, cholecystitis, diverticulosis, ischemic bowel, pancreatitis, hepatitis, UTI, gastroenteritis, AAA, incarcerated hernia, bowel obstruction, constipation, inflammatory bowel, hepatitis, peptic ulcer disease, splenic infarction, perforated viscus, testicular torsion, this is not meant to be an all-inclusive listle EKG interpreted by me (3pts min.). @ -None X-rays interpreted by me (1pt min.). @ -None done CT interpreted by me (1pt min.). @ -None done U/S interpreted by me (1pt. min.). @ -None done What testing was considered but not performed or refused? (CT, X-rays, U/S, labs)? Why? @ -CT though patient had a recent CT What meds were considered but not given or refused? Why? @ -None Did you discuss the management of the patient with other professionals (professionals i.e. , PA, CLAY TEMPERER, lab, RT, psych nurse, drug abuse social worker, visual communications instructor, teacher, protective services officer, major case detective)? Give summary @ -No Was smoking cessation discussed for >3mins.? @ -No Was critical care preformed (if so, how long)? @ -No Were there social determinants of health that impacted care today? How? (Homelessness, low income, unemployed, alcoholism, drug addiction, transportation, low edu. Level, literacy, decrease access to med. care, nursing home, rehab)? @ -No Was there de-escalation of care discussed even if they declined (Discuss DNR or withdrawal of care, Hospice)? DNR status @ -No What co-morbidities impacted this encounter? (DM, HTN, Smoking, COPD, CAD, Cancer, CVA, ARF, Chemo, Hep., AIDS, mental health diagnosis, sleep apnea, morbid obesity)? @ -None Was patient admitted / discharged? Hospital course, mention meds given and route, prescriptions, significant lab abnormalities, going to OR and other pertinent info. @ -Discharge patient laboratory studies are unremarkable patient's lipase has improved. Patient has no localized symptoms. Patient will be discharged in stable patient will follow patient provided a work no and omeprazole for reflux. Undiagnosed new problem with uncertain prognosis? @ -No Drug Therapy requiring intensive monitoring for toxicity (Heparin, Nitro, Insulin, Cardizem)? @ -No Were any procedures done? @ -No Diagnosis/symptom? @ -[Abdominal pain Acute, or Chronic, or Acute on Chronic? @ -Acute Uncomplicated (without systemic symptoms) or Complicated (systemic symptoms)? @ -Uncomplicated Side effects of treatment? @ -No Exacerbation, Progression, or Severe Exacerbation? @ -No Poses a threat to life or bodily function? How? (Chest pain, [place], [place], pneumonia, PE, COPD, DKA, ARF, appy, cholecystitis, CVA, Diverticulitis, Homicidal, Suicidal, threat to staff... and all critical care pts) @ -No - Lab Data Result diagrams: 02/02/23 00:37 02/02/23 00:37 Lab Results 02/02/23 02/02/23 Range/Units 00:37 00:37 WBC 5.8 (3.8-10.6) k/uL RBC 4.87 (4.30-5.90) m/uL Hgb 15.4 (13.0-17.5) gm/dL Hct 45.1 (39.0-53.0) % MCV 92.6 (80.0-100.0) fL MCH 31.7 (25.0-35.0) pg MCHC 34.3 (31.0-37.0) g/dL RDW 12.2 (11.5-15.5) % Plt Count 219 (150-450) k/uL MPV 6.7 Neutrophils % 55 % Lymphocytes % 32 % Monocytes % 8 % Eosinophils % 3 % Basophils % 0 % Neutrophils # 3.2 (1.3-7.7) k/uL Lymphocytes # 1.8 (1.0-4.8) k/uL Monocytes # 0.5 (0-1.0) k/uL Eosinophils # 0.2 (0-0.7) k/uL Basophils # 0.0 (0-0.2) k/uL Sodium 139 (137-145) mmol/L Potassium 4.1 (3.5-5.1) mmol/L Chloride 106 (98-107) mmol/L Carbon Dioxide 30 (22-30) mmol/L Anion Gap 3 mmol/L BUN 19 (9-20) mg/dL Creatinine 0.74 (0.66-1.25) mg/dL Est GFR (CKD-EPI)AfAm >90 (>60 ml/min/1.73 sqM) Est GFR (CKD-EPI)NonAf >90 (>60 ml/min/1.73 sqM) Glucose 93 (74-99) mg/dL Calcium 9.3 (8.4-10.2) mg/dL Total Bilirubin 0.3 (0.2-1.3) mg/dL AST 22 (17-59) U/L ALT 21 (4-49) U/L Alkaline Phosphatase 100 (38-126) U/L Total Protein 6.9 (6.3-8.2) g/dL Albumin 4.0 (3.5-5.0) g/dL Lipase 295 (23-300) U/L Disposition Clinical Impression: Abdominal pain Disposition: HOME SELF-CARE Condition: Stable Instructions (If sedation given, give patient instructions): Abdominal Pain (ED) Additional Instructions: Please return to the Emergency Department if symptoms worsen or any other concerns. Prescriptions: Omeprazole [PriLOSEC] 40 mg PO DAILY #14 cap Ondansetron Odt [Zofran Odt] 4 mg PO Q8HR PRN #10 tab PRN Reason: Nausea Is patient prescribed a controlled substance at d/c from ED?: No Referrals: Ramona Gann MD [Primary Care Provider] - 1-2 days Time of Disposition: 02:31
[2023-02-02 03:03] VITALS: BP 108/72; PULSE 71; RESP 16
== END 2023-02-02 03:03 | disposition home or self-care (01) ==
LOC: EC 23:14
DX: R10.9 Unspecified abdominal pain (principal); J45.909 Unspecified asthma, uncomplicated; F17.200 Nicotine dependence, unspecified, uncomplicated; F12.90 Cannabis use, unspecified, uncomplicated; Z91.018 Allergy to other foods
CPT/HCPCS: 36415; 80053; 83690; 85025; 99284

== ENCOUNTER 2023-02-17 10:30 | Emergency (ER) | payer OTHER ==
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
[2023-02-17 11:51] VITALS: BP 121/65; PULSE 92; RESP 16; TEMP 98.2
== END 2023-02-17 11:51 | disposition home or self-care (01) ==
LOC: EC 10:30
DX: M25.512 Pain in left shoulder (principal); J45.909 Unspecified asthma, uncomplicated; F12.90 Cannabis use, unspecified, uncomplicated; F17.200 Nicotine dependence, unspecified, uncomplicated; Z91.013 Allergy to seafood
CPT/HCPCS: 99283

== ENCOUNTER 2023-04-17 20:31 | Emergency (ER) | payer OTHER ==
[2023-04-17 20:49] VITALS: BP 127/79; PULSE 75; RESP 18; TEMP 97.8
[2023-04-17] MEDS ORDERED: KETOROLAC 15 MG/ML 1 ML VIAL IM STA (22:08)
[2023-04-17] MEDS ORDERED: ACET/COD 300 MG/30 MG STARTER PACK 6 TAB BTL PO STA (22:08)
--- NOTE | 2023-04-17 22:12 | ED ---
ENT HPI - General Chief complaint: Dental/Oral Stated complaint: Tooth Ache Time Seen by Provider: 04/17/23 21:32 Source: patient Mode of arrival: ambulatory Limitations: no limitations - History of Present Illness Initial comments: 22-year-old male presenting with chief complaint of toothache ongoing for the last 6 months. Patient states that lately his pain has been increasing. He has appointment for tooth extraction in April. No swelling. No difficulty breathing or swallowing. No trismus or drooling. No fevers, chills, nausea, vomiting, neck pain, headache. - Related Data Home Medications Medication Instructions Recorded Confirmed busPIRone HCL 10 mg PO TID PRN 12/30/22 12/30/22 Previous Rx's Medication Instructions Recorded Famotidine [Pepcid] 20 mg PO DAILY 7 Days #7 tablet 12/30/22 Ondansetron Odt [Zofran Odt] 4 mg PO Q8HR PRN 2 Days #6 tab 12/30/22 Omeprazole [PriLOSEC] 40 mg PO DAILY #14 cap 02/02/23 Ondansetron Odt [Zofran Odt] 4 mg PO Q8HR PRN #10 tab 02/02/23 Acetaminophen-Codeine 300-30mg 1 tab PO Q6H PRN 3 Days #12 tablet 04/17/23 [Tylenol w/codeine #3] Allergies Allergy/AdvReac Type Severity Reaction Status Date / Time shellfish derived [Shrimp] Allergy Anaphylaxis Verified 02/17/23 10:46 Review of Systems ROS Statement: Those systems with pertinent positive or pertinent negative responses have been documented in the HPI. ROS Other: All systems not noted in ROS Statement are negative. Past Medical History Past Medical History: Asthma History of Any Multi-Drug Resistant Organisms: None Reported Past Surgical History: No Surgical Hx Reported Past Psychological History: No Psychological Hx Reported Smoking Status: Current every day smoker Past Alcohol Use History: Occasional Past Drug Use History: Marijuana General Exam Limitations: no limitations General appearance: alert, in no apparent distress Head exam: Present: atraumatic, normocephalic, normal inspection Eye exam: Present: normal appearance, EOMI. Absent: scleral icterus, periorbital swelling Expanded Mouth exam: Present: normal external inspection, tongue normal. Absent: drooling, trismus, muffled voice Teeth exam: Present: dental caries, dental tenderness #. Absent: gingival enlargement Throat exam: normal inspection Neck exam: Present: normal inspection, full ROM. Absent: tenderness Respiratory exam: Present: normal lung sounds bilaterally. Absent: respiratory distress, wheezes, rales, rhonchi, stridor Cardiovascular Exam: Present: regular rate, normal rhythm, normal heart sounds. Absent: systolic murmur, diastolic murmur, rubs, gallop, clicks Neurological exam: Present: alert, oriented X3, CN II-XII intact Psychiatric exam: Present: normal affect, normal mood Skin exam: Present: warm, dry, intact, normal color. Absent: rash Course Vital Signs 04/17/23 20:45 Temperature 97.8 F Pulse Rate 75 Respiratory 18 Rate Blood Pressure 127/79 O2 Sat by Pulse 99 Oximetry Medical Decision Making - Medical Decision Making Was pt. sent in by a medical professional or institution (DREW Ratliff, VICE PRESIDENT FINANCIAL, urgent care, hospital, or correction...) When possible be specific @ -No Did you speak to anyone other than the patient for history (EMS, parent, family, police, friend...)? What history was obtained from this source @ -No Did you review nursing and triage notes (agree or disagree)? Why? @ -I reviewed and agree with nursing and triage notes Were old charts reviewed (outside hosp., previous admission, EMS record, old EKG, old radiological studies, urgent care reports/EKG's, correction records)? Report findings @ -No old charts were reviewed Differential Diagnosis (chest pain, altered mental status, abdominal pain women, abdominal pain men, vaginal bleeding, weakness, fever, dyspnea, syncope, headache, dizziness, GI bleed, back pain, seizure, CVA, palpatations, mental health, musculoskeletal)? @ -Differential includes toothache, dental abscess, Geovanni angina, this is not an all inclusive list EKG interpreted by me (3pts min.). @ -As above X-rays interpreted by me (1pt min.). @ -None done CT interpreted by me (1pt min.). @ -None done U/S interpreted by me (1pt. min.). @ -None done What testing was considered but not performed or refused? (CT, X-rays, U/S, labs)? Why? @ -None What meds were considered but not given or refused? Why? @ -None Did you discuss the management of the patient with other professionals (professionals i.e. , PA, VICE PRESIDENT FINANCIAL, lab, RT, psych nurse, social media director, injection molding process technician, teacher, armor officer, wrapper caser)? Give summary @ -No Was smoking cessation discussed for >3mins.? @ -No Was critical care preformed (if so, how long)? @ -No Were there social determinants of health that impacted care today? How? (Homelessness, low income, unemployed, alcoholism, drug addiction, transportation, low edu. Level, literacy, decrease access to med. care, assisted, rehab)? @ -No Was there de-escalation of care discussed even if they declined (Discuss DNR or withdrawal of care, Hospice)? DNR status @ -No What co-morbidities impacted this encounter? (DM, HTN, Smoking, COPD, CAD, Cancer, CVA, ARF, Chemo, Hep., AIDS, mental health diagnosis, sleep apnea, morbid obesity)? @ -None Was patient admitted / discharged? Hospital course, mention meds given and route, prescriptions, significant lab abnormalities, going to OR and other pertinent info. @ -22-year-old male presenting with chief complaint of dental pain ongoing for the last 6 months. Has a appointment for tooth extraction in April. On physical examination there is a large dental carry noted. No brawny induration. No difficulty breathing or swallowing. Patient is given a short course of Tylenol 3 instructed to follow-up with his dentist. Follow-up with PCP. Report back to ER with any new or worsening symptoms. Discussed return parameters and answered all questions. Patient conveyed verbal understanding and agreed to the plan. I discussed this case in detail with my attending Dr. Cardenas Undiagnosed new problem with uncertain prognosis? @ -No Drug Therapy requiring intensive monitoring for toxicity (Heparin, Nitro, Insulin, Cardizem)? @ -No Were any procedures done? @ -No Diagnosis/symptom? @ -Toothache Acute, or Chronic, or Acute on Chronic? @ -Acute Uncomplicated (without systemic symptoms) or Complicated (systemic symptoms)? @ -Uncomplicated Side effects of treatment? @ -No Exacerbation, Progression, or Severe Exacerbation? @ -No Poses a threat to life or bodily function? How? (Chest pain, [place], [place], pneumonia, PE, COPD, DKA, ARF, appy, cholecystitis, CVA, Diverticulitis, Homicidal, Suicidal, threat to staff... and all critical care pts) @ -No Disposition Clinical Impression: Toothache Disposition: HOME SELF-CARE Condition: Good Instructions (If sedation given, give patient instructions): Toothache (ED) Additional Instructions: Follow-up with dentist at scheduled appointment. Report back to ER with any new or worsening symptoms. Take medication as prescribed. Prescriptions: Acetaminophen-Codeine 300-30mg [Tylenol w/codeine #3] 1 tab PO Q6H PRN 3 Days #12 tablet PRN Reason: Pain Is patient prescribed a controlled substance at d/c from ED?: No Referrals: Ramona Gann MD [Primary Care Provider] - 1-2 days Time of Disposition: 22:10
== END 2023-04-17 22:38 | disposition home or self-care (01) ==
LOC: EC 20:31
DX: K02.9 Dental caries, unspecified (principal); J45.909 Unspecified asthma, uncomplicated; F17.200 Nicotine dependence, unspecified, uncomplicated; F12.90 Cannabis use, unspecified, uncomplicated; Z91.013 Allergy to seafood
CPT/HCPCS: 99283; 96372; J1885

== ENCOUNTER 2023-04-23 13:48 | Emergency (ER) | payer OTHER ==
[2023-04-23] MEDS ORDERED: DIPH,PERTUS(ACELL)TETVAC-LF 0.5 ML VIAL IM ONE (14:56)
[2023-04-23] MEDS ORDERED: SODIUM CHLORIDE 0.9% 1,000 ML IV ONE (14:56)
[2023-04-23] MEDS ORDERED: MORPHINE SULFATE 4 MG/ML SYRINGE IVP STA ×2 (14:56→17:21)
[2023-04-23] MEDS ORDERED: GELATIN SPONGE,ABSORB (SMALL) 1 EACH SPONGE TOPICAL STA (14:56)
--- NOTE | 2023-04-23 15:12 | XR ---
EXAMINATION TYPE: XR hand complete LT DATE OF EXAM: 04/23/2023 COMPARISON: 07/19/2014 HISTORY: Fourth digit crush injury TECHNIQUE: 3 view left hand FINDINGS: Soft tissue injuries over the distal fourth digit. There appears to be injury to the distal tuft of the fourth digit. Subtle longitudinal fracture lines may be present at the residual tuft. Remaining portions of the left hand appear intact. Old fifth metacarpal fracture could be considered. IMPRESSION: 1. Soft tissue injury distal fourth digit. 2. There appears to be some injury to the tuft of the distal phalanx left fourth digit. A longitudina l fracture lines appear to be present on the AP projection.
--- NOTE | 2023-04-23 15:52 | ED ---
Upper Extremity HPI - General Chief Complaint: Extremity Injury, Upper Stated Complaint: finger laceration Time Seen by Provider: 04/23/23 14:33 Source: patient Mode of arrival: ambulatory Limitations: no limitations - History of Present Illness Initial Comments: 22-year-old male with no reported past medical history presents to the emergency room with a crush injury to his left fourth digit. States he was at work when his finger got crushed in machine that he was working on. Incident happened just prior to hospital arrival. Patient denies having much pain. Has limited range of motion due to crush injury distally. He is not on any blood thinners. Bleeding is controlled. Unsure of his last tetanus. He is right-hand dominant. No other alleviating, precipitating or modifying factors - Related Data Home Medications Medication Instructions Recorded Confirmed Ibuprofen [Motrin] 600 mg PO TID PRN 04/23/23 04/23/23 Previous Rx's Medication Instructions Recorded Cephalexin [Keflex] 500 mg PO Q6HR #28 cap 04/23/23 HYDROcodone/APAP 10-325MG [[place] 1 tab PO Q4HR PRN 3 Days #18 tab 04/23/23 10-325] Ibuprofen 600 mg PO Q8HR #25 tab 04/23/23 Allergies Allergy/AdvReac Type Severity Reaction Status Date / Time shellfish derived [Shrimp] Allergy Anaphylaxis Verified 04/23/23 15:22 Review of Systems ROS Statement: Those systems with pertinent positive or pertinent negative responses have been documented in the HPI. ROS Other: All systems not noted in ROS Statement are negative. Past Medical History Past Medical History: Asthma History of Any Multi-Drug Resistant Organisms: None Reported Past Surgical History: No Surgical Hx Reported Past Psychological History: Anxiety Smoking Status: Current every day smoker, Vaper Past Alcohol Use History: Occasional Past Drug Use History: Marijuana General Exam Limitations: no limitations General appearance: alert, in no apparent distress Extremities exam: Present: other (Patient has partial amputation of the distal left fourth digit distal to the DIP joint. There is thrombosed subcutaneous tissue exposed. Nail is gone. He continues to have normal range of motion testing at the MCP and PIP joint) Neurological exam: Present: alert, oriented X3, CN II-XII intact Psychiatric exam: Present: normal affect, normal mood Course Vital Signs 04/23/23 04/23/23 04/23/23 13:50 14:47 15:00 Temperature 98.8 F Pulse Rate 109 H 77 78 Respiratory 18 20 18 Rate Blood Pressure 127/72 122/74 124/70 O2 Sat by Pulse 98 99 99 Oximetry 04/23/23 04/23/23 16:00 17:45 Temperature 98.6 F Pulse Rate 74 76 Respiratory 18 18 Rate Blood Pressure 123/76 124/78 O2 Sat by Pulse 99 99 Oximetry - Reevaluation(s) Reevaluation #1: 04/23/23 15:52 Spoke with [facility] from [facility] Medical Decision Making - Medical Decision Making Was pt. sent in by a medical professional or institution (, DREW, ANSWERING SERVICE OPERATOR, urgent care, hospital, or [facility]...) When possible be specific @ -No Did you speak to anyone other than the patient for history (EMS, parent, family, police, friend...)? What history was obtained from this source @ -No Did you review nursing and triage notes (agree or disagree)? Why? @ -I reviewed and agree with nursing and triage notes Were old charts reviewed (outside hosp., previous admission, EMS record, old EKG, old radiological studies, urgent care reports/EKG's, [facility] records)? Report findings @ -No old charts were reviewed Differential Diagnosis (chest pain, altered mental status, abdominal pain women, abdominal pain men, vaginal bleeding, weakness, fever, dyspnea, syncope, headache, dizziness, GI bleed, back pain, seizure, CVA, palpatations, mental health, musculoskeletal)? @ -Tuft fracture, avulsion, partial amputation, open fracture EKG interpreted by me (3pts min.). @ -Not done X-rays interpreted by me (1pt min.). @ -Yes and demonstrates tuft fracture left fourth finger CT interpreted by me (1pt min.). @ -None done U/S interpreted by me (1pt. min.). @ -None done What testing was considered but not performed or refused? (CT, X-rays, U/S, labs)? Why? @ -None What meds were considered but not given or refused? Why? @ -None Did you discuss the management of the patient with other professionals (professionals i.e. , DREW, ANSWERING SERVICE OPERATOR, lab, RT, psych nurse, hospice social worker, manager net, teacher, fisheries enforcement officer, briefcase sewer)? Give summary @ -Spoke with [facility], Rosy, who states that Dr. Pablo will see the patient on Wednesday Was smoking cessation discussed for >3mins.? @ -No Was critical care preformed (if so, how long)? @ -No Were there social determinants of health that impacted care today? How? (Homelessness, low income, unemployed, alcoholism, drug addiction, transportation, low edu. Level, literacy, decrease access to med. care, [facility], rehab)? @ -No Was there de-escalation of care discussed even if they declined (Discuss DNR or withdrawal of care, Hospice)? DNR status @ -No What co-morbidities impacted this encounter? (DM, HTN, Smoking, COPD, CAD, Cancer, CVA, ARF, Chemo, Hep., AIDS, mental health diagnosis, sleep apnea, morbid obesity)? @ -None Was patient admitted / discharged? Hospital course, mention meds given and route, prescriptions, significant lab abnormalities, going to OR and other pertinent info. @ -Arrival patient was placed in a trauma 2. Thorough history and physical exam is performed. IV was established. Patient was given 4 mg of morphine for pain control. Tetanus was updated. Given 2 g of Ancef for open fracture. X- ray was performed which demonstrates tuft fracture. The wound is soaked in iodine and sterile water. I did evaluate the wound in a bloodless field which demonstrates thrombosed soft tissue. Nail is absent. Unable to perform laceration repair due to loss of skin. I did place Gelfoam at the site. I called and spoke with [facility] from [facility] in regards the patient's care. States that the patient should be wrapped in follow-up in the office on Wednesday with Dr. Pablo. Patient is to keep the area clean, dry and covered. He will be placed on antibiotics and outpatient setting. Instructed to ice and elevate the finger. Alternate Motrin and [place] for pain control. Follow-up wi acacia Pablo on Wednesday without fail and return for any new or worsening symptoms. Patient agreeable to this plan and was discharged in stable condition Undiagnosed new problem with uncertain prognosis? @ -No Drug Therapy requiring intensive monitoring for toxicity (Heparin, Nitro, Insulin, Cardizem)? @ -No Were any procedures done? @ -No Diagnosis/symptom? @ -Acute open fracture left finger, distal phalanx Acute, or Chronic, or Acute on Chronic? @ -Acute Uncomplicated (without systemic symptoms) or Complicated (systemic symptoms)? @ -Uncomplicated Side effects of treatment? @ -No Exacerbation, Progression, or Severe Exacerbation? @ -No Poses a threat to life or bodily function? How? (Chest pain, [place], [place], pneumonia, PE, COPD, DKA, ARF, appy, cholecystitis, CVA, Diverticulitis, Homicidal, Suicidal, threat to staff... and all critical care pts) @ -No Disposition Clinical Impression: Open fracture of tuft of distal phalanx of finger, Crush injury Disposition: HOME SELF-CARE Condition: Stable Instructions (If sedation given, give patient instructions): Finger Fracture (ED) Additional Instructions: Keep the finger covered until you see the orthopedic surgeon. Call on Wednesday at 8 AM. She is expecting to see you on Wednesday. Ice and elevate the extremity. Take antibiotics as directed. Alternate taking Motrin and [place] every 4 hours for pain control. Return for any new or worsening symptoms Prescriptions: Ibuprofen 600 mg PO Q8HR #25 tab Cephalexin [Keflex] 500 mg PO Q6HR #28 cap HYDROcodone/APAP 10-325MG [[place] 10-325] 1 tab PO Q4HR PRN 3 Days #18 tab PRN Reason: Pain Is patient prescribed a controlled substance at d/c from ED?: Yes When asked, does pt state using other controlled substances?: No If prescribed controlled substance>3 days was MAPS reviewed?: Prescribed <3 Days If opioid is for acute pain is fill amount 7 days or less?: Yes Referrals: Ramona Gann MD [Primary Care Provider] - 1-2 days Andressa Pablo DO [Doctor of Osteopathic Medicine] - 1-2 days Time of Disposition: 17:24
[2023-04-23 16:12] VITALS: RESP 18
[2023-04-23 17:46] VITALS: BP 124/78; PULSE 76; TEMP 98.6
== END 2023-04-23 18:06 | disposition home or self-care (01) ==
LOC: EC 13:48
DX: S62.635B Displaced fracture of distal phalanx of left ring finger, initial encounter for open fracture (principal); J45.909 Unspecified asthma, uncomplicated; F41.9 Anxiety disorder, unspecified; F17.290 Nicotine dependence, other tobacco product, uncomplicated; F12.90 Cannabis use, unspecified, uncomplicated; Z79.899 Other long term (current) drug therapy; Z91.013 Allergy to seafood; W23.0XXA Caught, crushed, jammed, or pinched between moving objects, initial encounter
CPT/HCPCS: 73130; 90715; 99284; 96365; 96375; 96376; 90471; J2270; J0690

== ENCOUNTER 2023-08-11 12:12 | Emergency (ER) | payer SELFPAY ==
[2023-08-11 12:46] VITALS: BP 134/74; PULSE 76; RESP 16; TEMP 98.2
--- NOTE | 2023-08-11 12:47 | ED ---
Skin/Abscess/FB HPI - General Chief complaint: Skin/Abscess/Foreign Body Stated complaint: lip rash Time Seen by Provider: 08/11/23 12:42 Source: patient, RN notes reviewed Mode of arrival: ambulatory Limitations: no limitations - History of Present Illness Initial comments: 22-year-old male presents emergency Department chief complaint of blisters on h is lips. Patient states that there for over one week. Patient had a culture by PCP which came out negative for anything. Patient states that he was on a few days of acyclovir withimprovement. Patient states that he does have a history of herpes. Patient denies applying any creams or Chapstick that caused the rash. - Related Data Home Medications Medication Instructions Recorded Confirmed Ibuprofen [Motrin] 600 mg PO TID PRN 04/23/23 04/23/23 Previous Rx's Medication Instructions Recorded Cephalexin [Keflex] 500 mg PO Q6HR #28 cap 04/23/23 HYDROcodone/APAP 10-325MG [[place] 1 tab PO Q4HR PRN 3 Days #18 tab 04/23/23 10-325] Ibuprofen 600 mg PO Q8HR #25 tab 04/23/23 Acyclovir [Zovirax] 400 mg PO TID 5 Days #15 tablet 07/27/23 Bacitracin Zinc/Polymyxin B 1 applic TOPICAL TID 7 Days #15 gm 07/27/23 [Bacitracin-Polymyxin Ointment] Acyclovir 5% Oint [Zovirax Oint] 1 applic TOPICAL 5XD #10 gm 08/11/23 valACYclovir HCL [Valtrex] 1,000 mg PO BID #20 tablet 08/11/23 Allergies Allergy/AdvReac Type Severity Reaction Status Date / Time shellfish derived [Shrimp] Allergy Anaphylaxis Verified 08/11/23 12:35 Review of Systems ROS Statement: Those systems with pertinent positive or pertinent negative responses have been documented in the HPI. ROS Other: All systems not noted in ROS Statement are negative. Past Medical History Past Medical History: Asthma History of Any Multi-Drug Resistant Organisms: None Reported Past Surgical History: No Surgical Hx Reported Past Psychological History: Anxiety Smoking Status: Current every day smoker, Vaper Past Alcohol Use History: Occasional Past Drug Use History: Marijuana General Exam Limitations: no limitations General appearance: alert, in no apparent distress Head exam: Present: atraumatic, normocephalic, normal inspection Eye exam: Present: normal appearance, PERRL, EOMI. Absent: scleral icterus, conjunctival injection, periorbital swelling ENT exam: Present: mucous membranes moist, TM's normal bilaterally, normal external ear exam. Absent: normal oropharynx (Erythematous blisters on the lips noted) Neck exam: Present: normal inspection, full ROM. Absent: tenderness, meningismus, lymphadenopathy Respiratory exam: Present: normal lung sounds bilaterally. Absent: respiratory distress, wheezes, rales, rhonchi, stridor Cardiovascular Exam: Present: regular rate, normal rhythm, normal heart sounds. Absent: systolic murmur, diastolic murmur, rubs, gallop, clicks Course Vital Signs 08/11/23 12:35 Temperature 98.2 F Pulse Rate 76 Respiratory 16 Rate Blood Pressure 134/74 O2 Sat by Pulse 98 Oximetry Medical Decision Making - Medical Decision Making Was pt. sent in by a medical professional or institution (, PA, PRE BILLING SPECIALIST, urgent care, hospital, or half-way...) When possible be specific @ -No Did you speak to anyone other than the patient for history (EMS, parent, family, police, friend...)? What history was obtained from this source @ -No Did you review nursing and triage notes (agree or disagree)? Why? @ -I reviewed and agree with nursing and triage notes Were old charts reviewed (outside hosp., previous admission, EMS record, old EKG, old radiological studies, urgent care reports/EKG's, half-way records)? Report findings @ -No old charts were reviewed Differential Diagnosis (chest pain, altered mental status, abdominal pain women, abdominal pain men, vaginal bleeding, weakness, fever, dyspnea, syncope, headache, dizziness, GI bleed, back pain, seizure, CVA, palpatations, mental health, musculoskeletal)? @ -[id number]-[id number]-mouth, herpes EKG interpreted by me (3pts min.). @ -None X-rays interpreted by me (1pt min.). @ -None done CT interpreted by me (1pt min.). @ -None done U/S interpreted by me (1pt. min.). @ -None done What testing was considered but not performed or refused? (CT, X-rays, U/S, labs)? Why? @ -None What meds were considered but not given or refused? Why? @ -None Did you discuss the management of the patient with other professionals (professionals i.e. , PA, PRE BILLING SPECIALIST, lab, RT, psych nurse, family welfare social work professor, special delivery carrier, teacher, chief business officer, casey saw operator)? Give summary @ -No Was smoking cessation discussed for >3mins.? @ -No Was critical care preformed (if so, how long)? @ -No Were there social determinants of health that impacted care today? How? (Homelessness, low income, unemployed, alcoholism, drug addiction, transporta tion, low edu. Level, literacy, decrease access to med. care, nursing home, rehab)? @ -No Was there de-escalation of care discussed even if they declined (Discuss DNR or withdrawal of care, Hospice)? DNR status @ -No What co-morbidities impacted this encounter? (DM, HTN, Smoking, COPD, CAD, Cancer, CVA, ARF, Chemo, Hep., AIDS, mental health diagnosis, sleep apnea, morbid obesity)? @ -None Was patient admitted / discharged? Hospital course, mention meds given and route, prescriptions, significant lab abnormalities, going to OR and other pertinent info. @ -Discharge patient appears to have herpes simplex patient discharged on Valtrex return parameters were discussed. Undiagnosed new problem with uncertain prognosis? @ -No Drug Therapy requiring intensive monitoring for toxicity (Heparin, Nitro, Insulin, Cardizem)? @ -No Were any procedures done? @ -No Diagnosis/symptom? @ -[Herpes Acute, or Chronic, or Acute on Chronic? @ -[Acute Uncomplicated (without systemic symptoms) or Complicated (systemic symptoms)? @ -Uncomplicated Side effects of treatment? @ -No Exacerbation, Progression, or Severe Exacerbation? @ -No Poses a threat to life or bodily function? How? (Chest pain, [place], [place], pneumonia, PE, COPD, DKA, ARF, appy, cholecystitis, CVA, Diverticulitis, Homicidal, Suicidal, threat to staff... and all critical care pts) @ -No Disposition Clinical Impression: Oral herpes Disposition: HOME SELF-CARE Condition: Stable Additional Instructions: Please return to the Emergency Department if symptoms worsen or any other concerns. Prescriptions: valACYclovir HCL [Valtrex] 1,000 mg PO BID #20 tablet Acyclovir 5% Oint [Zovirax Oint] 1 applic TOPICAL 5XD #10 gm Is patient prescribed a controlled substance at d/c from ED?: No Referrals: Ramona Gann MD [Primary Care Provider] - 1-2 days Time of Disposition: 12:47
== END 2023-08-11 13:13 | disposition home or self-care (01) ==
LOC: EC 12:12
DX: B00.2 Herpesviral gingivostomatitis and pharyngotonsillitis (principal); J45.909 Unspecified asthma, uncomplicated; F17.290 Nicotine dependence, other tobacco product, uncomplicated; F12.90 Cannabis use, unspecified, uncomplicated; Z86.59 Personal history of other mental and behavioral disorders; Z91.013 Allergy to seafood
CPT/HCPCS: 99282

== ENCOUNTER 2023-09-11 03:59 | Emergency (ER) | payer OTHER ==
[2023-09-11 04:21] VITALS: RESP 18; TEMP 98.2
--- NOTE | 2023-09-11 04:58 | ED ---
General Adult HPI - General Chief complaint: ENT Stated complaint: Loss of Hearing Left Ear Source: patient Mode of arrival: ambulatory Limitations: no limitations - History of Present Illness Initial comments: 22-year-old male presents emergency department reporting to a blocked left ear. States that today the patient had acute onset of a plugged left ear. He went into [facility] where they placed him on eardrops for an ear infection. States that he could not obtain them as his insurance did not cover it. He denies any ear pain, just congestion. No fevers. Denies sore throat no recent upper respiratory infection. No other alleviating, precipitating or modifying factors - Related Data Home Medications Medication Instructions Recorded Confirmed Ibuprofen [Motrin] 600 mg PO TID PRN 04/23/23 04/23/23 Previous Rx's Medication Instructions Recorded Cephalexin [Keflex] 500 mg PO Q6HR #28 cap 04/23/23 HYDROcodone/APAP 10-325MG [[place] 1 tab PO Q4HR PRN 3 Days #18 tab 04/23/23 10-325] Ibuprofen 600 mg PO Q8HR #25 tab 04/23/23 Acyclovir [Zovirax] 400 mg PO TID 5 Days #15 tablet 07/27/23 Bacitracin Zinc/Polymyxin B 1 applic TOPICAL TID 7 Days #15 gm 07/27/23 [Bacitracin-Polymyxin Ointment] Acyclovir 5% Oint [Zovirax Oint] 1 applic TOPICAL 5XD #10 gm 08/11/23 valACYclovir HCL [Valtrex] 1,000 mg PO BID #20 tablet 08/11/23 Allergies Allergy/AdvReac Type Severity Reaction Status Date / Time shellfish derived [Shrimp] Allergy Anaphylaxis Verified 09/11/23 04:03 Review of Systems ROS Statement: Those systems with pertinent positive or pertinent negative responses have been documented in the HPI. ROS Other: All systems not noted in ROS Statement are negative. Past Medical History Past Medical History: Asthma History of Any Multi-Drug Resistant Organisms: None Reported Past Surgical History: No Surgical Hx Reported Past Psychological History: Anxiety Smoking Status: Current every day smoker, Vaper Past Alcohol Use History: Occasional Past Drug Use History: Marijuana General Exam Limitations: no limitations Head exam: Present: atraumatic, normocephalic, normal inspection Eye exam: Present: normal appearance, PERRL, EOMI. Absent: scleral icterus, conjunctival injection, periorbital swelling ENT exam: Present: other (Right tympanic membrane is baird and shiny. Patient does have cerumen impaction on the left side with inability to see the membrane) Course Vital Signs 09/11/23 09/11/23 04:00 05:39 Temperature 98.2 F Pulse Rate 70 77 Respiratory 18 18 Rate Blood Pressure 113/76 96/57 O2 Sat by Pulse 98 97 Oximetry Medical Decision Making - Medical Decision Making Was pt. sent in by a medical professional or institution (DREW Ratliff, INSIGHTS STRATEGIST, urgent care, hospital, or skilled nursing...) When possible be specific @ -No Did you speak to anyone other than the patient for history (EMS, parent, family, police, friend...)? What history was obtained from this source @ -No Did you review nursing and triage notes (agree or disagree)? Why? @ -I reviewed and agree with nursing and triage notes Were old charts reviewed (outside hosp., previous admission, EMS record, old EKG, old radiological studies, urgent care reports/EKG's, skilled nursing records)? Report findings @ -No old charts were reviewed Differential Diagnosis (chest pain, altered mental status, abdominal pain women, abdominal pain men, vaginal bleeding, weakness, fever, dyspnea, syncope, headache, dizziness, GI bleed, back pain, seizure, CVA, palpatations, mental health, musculoskeletal)? @ -Otitis externa, otitis media, cerumen impaction EKG interpreted by me (3pts min.). @ -Not done X-rays interpreted by me (1pt min.). @ -None done CT interpreted by me (1pt min.). @ -None done U/S interpreted by me (1pt. min.). @ -None done What testing was considered but not performed or refused? (CT, X-rays, U/S, labs)? Why? @ -None What meds were considered but not given or refused? Why? @ -None Did you discuss the management of the patient with other professionals (professionals i.e. DREW Ratliff, INSIGHTS STRATEGIST, lab, RT, psych nurse, social service manager, manager terminal, teacher, senior compliance officer, onsite case manager)? Give summary @ -No Was smoking cessation discussed for >3mins.? @ -No Was critical care preformed (if so, how long)? @ -No Were there social determinants of health that impacted care today? How? (Homelessness, low income, unemployed, alcoholism, drug addiction, transportation, low edu. Level, literacy, decrease access to med. care, long term, rehab)? @ -No Was there de-escalation of care discussed even if they declined (Discuss DNR or withdrawal of care, Hospice)? DNR status @ -No What co-morbidities impacted this encounter? (DM, HTN, Smoking, COPD, CAD, Cancer, CVA, ARF, Chemo, Hep., AIDS, mental health diagnosis, sleep apnea, morbid obesity)? @ -None Was patient admitted / discharged? Hospital course, mention meds given and route, prescriptions, significant lab abnormalities, going to OR and other pertinent info. @ -Discharge. Upon arrival patient is placed into room 31. Patient does have cerumen impaction. His ears flushed. He is given Debrox eardrops. Patient is to follow up with ENT and return for any new or worsening symptoms Undiagnosed new problem with uncertain prognosis? @ -No Drug Therapy requiring intensive monitoring for toxicity (Heparin, Nitro, Insulin, Cardizem)? @ -No Were any procedures done? @ -No Diagnosis/symptom? @ -Acute cerumen impaction left ear Acute, or Chronic, or Acute on Chronic? @ -Acute Uncomplicated (without systemic symptoms) or Complicated (systemic symptoms)? @ -Uncomplicated Side effects of treatment? @ -No Exacerbation, Progression, or Severe Exacerbation? @ -No Poses a threat to life or bodily function? How? (Chest pain, [place], [place], pneumonia, PE, COPD, DKA, ARF, appy, cholecystitis, CVA, Diverticulitis, Homicidal, Suicidal, threat to staff... and all critical care pts) @ -No Disposition Clinical Impression: Impacted cerumen of left ear Disposition: HOME SELF-CARE Condition: Stable Instructions (If sedation given, give patient instructions): Earache (ED) Is patient prescribed a controlled substance at d/c from ED?: No Referrals: Ramona Gann MD [Primary Care Provider] - 1-2 days Roberto Meadows DO [Doctor of Osteopathic Medicine] - 1-2 days Time of Disposition: 05:06
[2023-09-11] MEDS ORDERED: CARBAMIDE PEROXIDE 6.5% DROPS 15 ML BTL LEFT EAR STA (05:27)
[2023-09-11 06:01] VITALS: BP 96/57; PULSE 77
== END 2023-09-11 05:40 | disposition home or self-care (01) ==
LOC: EC 03:59
DX: H61.22 Impacted cerumen, left ear (principal); J45.909 Unspecified asthma, uncomplicated; F17.290 Nicotine dependence, other tobacco product, uncomplicated; F12.90 Cannabis use, unspecified, uncomplicated; Z86.59 Personal history of other mental and behavioral disorders; Z91.013 Allergy to seafood
CPT/HCPCS: 99283

== ENCOUNTER 2023-10-25 15:28 | Emergency (ER) | payer OTHER ==
--- NOTE | 2023-10-25 16:46 | ED ---
General Adult HPI - General Chief complaint: Skin/Abscess/Foreign Body Stated complaint: mouth infection Time Seen by Provider: 10/25/23 16:11 Source: patient Mode of arrival: ambulatory Limitations: no limitations - History of Present Illness Initial comments: 22-year-old male presenting to the ED with a chief complaint of rash. 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 States that he thinks he was told that there were positive in the past however is unsure. States over the past few months has had intermittent rash on his lips. Patient states he does not have a rash on his lips right now however over the past few days has had a burning/tingling sensation to his lips. Reports that he has tried Vagisil and Monistat for the rash and these have not worked for him in the past. Reports that he would like to be retested for HSV. Denies urethral discharge. Denies urinary symptoms. No rash elsewhere. No other complaints. - Related Data Home Medications Medication Instructions Recorded Confirmed Ibuprofen [Motrin] 600 mg PO TID PRN 04/23/23 04/23/23 Previous Rx's Medication Instructions Recorded Cephalexin [Keflex] 500 mg PO Q6HR #28 cap 04/23/23 HYDROcodone/APAP 10-325MG [[place] 1 tab PO Q4HR PRN 3 Days #18 tab 04/23/23 10-325] Ibuprofen 600 mg PO Q8HR #25 tab 04/23/23 Acyclovir [Zovirax] 400 mg PO TID 5 Days #15 tablet 07/27/23 Bacitracin Zinc/Polymyxin B 1 applic TOPICAL TID 7 Days #15 gm 07/27/23 [Bacitracin-Polymyxin Ointment] Acyclovir 5% Oint [Zovirax Oint] 1 applic TOPICAL 5XD #10 gm 08/11/23 valACYclovir HCL [Valtrex] 1,000 mg PO BID #20 tablet 08/11/23 Acyclovir [Zovirax] 400 mg PO TID 10 Days #30 tab 10/25/23 Allergies Allergy/AdvReac Type Severity Reaction Status Date / Time shellfish derived [Shrimp] Allergy Anaphylaxis Verified 10/25/23 15:59 Review of Systems ROS Statement: Those systems with pertinent positive or pertinent negative responses have been documented in the HPI. ROS Other: All systems not noted in ROS Statement are negative. Past Medical History Past Medical History: Asthma History of Any Multi-Drug Resistant Organisms: None Reported Past Surgical History: No Surgical Hx Reported Past Psychological History: Anxiety Smoking Status: Current every day smoker, Vaper Past Alcohol Use History: Occasional Past Drug Use History: Marijuana General Exam Limitations: no limitations General appearance: alert, appears intoxicated ENT exam: Present: other (No active lesions.) Neck exam: Present: normal inspection Respiratory exam: Present: normal lung sounds bilaterally Cardiovascular Exam: Present: regular rate, normal rhythm GI/Abdominal exam: Present: soft Neurological exam: Present: alert, oriented X3 Skin exam: Present: warm, dry Course Vital Signs 10/25/23 15:57 Temperature 98.6 F Pulse Rate 77 Respiratory 16 Rate Blood Pressure 101/68 O2 Sat by Pulse 97 Oximetry Medical Decision Making - Medical Decision Making Was pt. sent in by a medical professional or institution (, PA, PROPRIETARY TRADER, urgent care, hospital, or [facility]...) When possible be specific @ -No Did you speak to anyone other than the patient for history (EMS, parent, family, police, friend...)? What history was obtained from this source @ -No Did you review nursing and triage notes (agree or disagree)? Why? @ -I reviewed and agree with nursing and triage notes Were old charts reviewed (outside hosp., previous admission, EMS record, old EKG, old radiological studies, urgent care reports/EKG's, [facility] records)? Report findings @ -No old charts were reviewed Differential Diagnosis (chest pain, altered mental status, abdominal pain women, abdominal pain men, vaginal bleeding, weakness, fever, dyspnea, syncope, headache, dizziness, GI bleed, back pain, seizure, CVA, palpatations, mental health, musculoskeletal)? @ -Secondary syphilis, chancroid, gonorrhea, chlamydia, HIV. This is not meant to be an all-inclusive list. EKG interpreted by me (3pts min.). @ -None X-rays interpreted by me (1pt min.). @ -None done CT interpreted by me (1pt min.). @ -None done U/S interpreted by me (1pt. min.). @ -None done What testing was considered but not performed or refused? (CT, X-rays, U/S, labs)? Why? @ -None What meds were considered but not given or refused? Why? @ -None Did you discuss the management of the patient with other professionals (professionals i.e. , PA, PROPRIETARY TRADER, lab, RT, psych nurse, social studies teacher, technical support representative, teacher, marketing officer, egg caser)? Give summary @ -No Was smoking cessation discussed for >3mins.? @ -No Was critical care preformed (if so, how long)? @ -No Were there social determinants of health that impacted care today? How? ([place]ash elessness, low income, unemployed, alcoholism, drug addiction, transportation, low edu. Level, literacy, decrease access to med. care, care home, rehab)? @ -No Was there de-escalation of care discussed even if they declined (Discuss DNR or withdrawal of care, Hospice)? DNR status @ -No What co-morbidities impacted this encounter? (DM, HTN, Smoking, COPD, CAD, Cancer, CVA, ARF, Chemo, Hep., AIDS, mental health diagnosis, sleep apnea, morbid obesity)? @ -None Was patient admitted / discharged? Hospital course, mention meds given and route, prescriptions, significant lab abnormalities, going to OR and other pertinent info. @ -Discharge 22-year-old male presenting to the ED with concerns of being retested for HSV 1/2 and waning/tingling of his lips for the past few days. Blood drawn for HSV 1/2 PCR. Patient provided prescription for acyclovir. Discharged home in stable condition and advised to follow up with PCP/health department. Discussed return precautions with patient who verbalizes agreement. Undiagnosed new problem with uncertain prognosis? @ -No Drug Therapy requiring intensive monitoring for toxicity (Heparin, Nitro, Insulin, Cardizem)? @ -No Were any procedures done? @ -No Diagnosis/symptom? @ -Lip pain/STD testing Acute, or Chronic, or Acute on Chronic? @ -Acute Uncomplicated (without systemic symptoms) or Complicated (systemic symptoms)? @ -Uncomplicated Side effects of treatment? @ -No Exacerbation, Progression, or Severe Exacerbation? @ -No Poses a threat to life or bodily function? How? (Chest pain, [place], [place], pneumonia, PE, COPD, DKA, ARF, appy, cholecystitis, CVA, Diverticulitis, Homicidal, Suicidal, threat to staff... and all critical care pts) @ -No Disposition Clinical Impression: Lip pain, Encounter for screening for infections with a predominantly sexual mode of transmission Disposition: HOME SELF-CARE Condition: Good Additional Instructions: Please return to the Emergency Department if symptoms worsen or any other concerns. Follow up with your primary care provider or the health department. Prescriptions: Acyclovir [Zovirax] 400 mg PO TID 10 Days #30 tab Is patient prescribed a controlled substance at d/c from ED?: No Referrals: Ramona Gann MD [Primary Care Provider] - 1-2 days Time of Disposition: 16:49
[2023-10-25 17:21] VITALS: BP 112/74; PULSE 68; RESP 18; TEMP 98.1
== END 2023-10-25 17:15 | disposition home or self-care (01) ==
LOC: EC 15:28
DX: K13.0 Diseases of lips (principal); Z11.3 Encounter for screening for infections with a predominantly sexual mode of transmission; J45.909 Unspecified asthma, uncomplicated; F17.290 Nicotine dependence, other tobacco product, uncomplicated; F12.90 Cannabis use, unspecified, uncomplicated; Z86.59 Personal history of other mental and behavioral disorders; Z91.013 Allergy to seafood
CPT/HCPCS: 87529; 99282

== ENCOUNTER 2024-03-05 16:32 | Emergency (ER) | payer OTHER ==
[2024-03-05 16:56] VITALS: PULSE 78; TEMP 97.7
[2024-03-05 20:26] LABS: Basophils % (A) 1 %; Eosinophils # (A) 0.1 k/uL (0-0.7); Eosinophils % (A) 2 %; HCT 45.2 % (39.0-53.0); Lymphocytes # (A) 2.1 k/uL (1.0-4.8); Lymphocytes % (A) 39 %; MCHC 33.3 g/dL (31.0-37.0); MCV 93.1 fL (80.0-100.0); Mean Platelet Volume 6.8; Monocytes # (A) 0.4 k/uL (0-1.0); Monocytes % (A) 8 %; Neutrophils # (A) 2.6 k/uL (1.3-7.7); Neutrophils % (A) 49 %; Platelet Count 244 k/uL (150-450); RBC 4.86 m/uL (4.30-5.90); RDW 12.2 % (11.5-15.5); WBC 5.3 k/uL (3.8-10.6)
[2024-03-05 20:47] LABS: African American GFR (CKD) >90 (>60 ml/min/1.73 sqM); Anion Gap 5 mmol/L; Blood Urea Nitrogen 11 mg/dL (9-20); Calcium 9.3 mg/dL (8.4-10.2); Carbon Dioxide 26 mmol/L (22-30); Chloride 107 mmol/L (98-107); Glucose 79 mg/dL (74-99); Non-African American GFR(CKD) >90 (>60 ml/min/1.73 sqM); Potassium 4.3 mmol/L (3.5-5.1); Sodium 138 mmol/L (137-145)
--- NOTE | 2024-03-05 21:15 | ED ---
General Adult HPI - General Chief complaint: Psychiatric Symptoms Stated complaint: Fatigue, numbness in hand Time Seen by Provider: 03/05/24 19:09 Source: patient, RN notes reviewed, old records reviewed Mode of arrival: ambulatory Limitations: no limitations - History of Present Illness Initial comments: Patient is a 23-year-old male who presents emergency department complaining of generalized fatigue as well as intermittent paresthesias of the hands and feet which has been ongoing for weeks to months as well as complaining of feeling wo rsening depression as well as suicidal lately. He has no plan. Denies any other acute complaints at this time. No history of attempting to hurt himself. No homicidal ideations, times complaints. Denies any hallucinations. Feels like he has no support at home. Presents for further evaluation. Currently does not have a therapist and currently does not take medications. - Related Data Home Medications Medication Instructions Recorded Confirmed No Known Home Medications 03/05/24 03/05/24 Allergies Allergy/AdvReac Type Severity Reaction Status Date / Time shellfish derived [Shrimp] Allergy Anaphylaxis Verified 03/05/24 19:16 Review of Systems ROS Statement: Those systems with pertinent positive or pertinent negative responses have been documented in the HPI. Review of Systems: CONST: Denies fever EYES: Denies blurry vision ENT: Denies nasal congestion C/V: Denies Chest pain RESP: Denies shortness of breath GI: Denies abdominal pain : Denies dysuria SKIN: Denies rash. MSK: Denies joint pain. NEURO: Denies headache ROS Other: All systems not noted in ROS Statement are negative. Past Medical History Past Medical History: Asthma History of Any Multi-Drug Resistant Organisms: None Reported Past Surgical History: No Surgical Hx Reported Past Psychological History: Anxiety Smoking Status: Current every day smoker, Vaper Past Alcohol Use History: Occasional Past Drug Use History: Marijuana General Exam - General Exam Comments Initial Comments: General: Appears in no acute distress. HEAD: Normal with no signs of head trauma. EYES: EOMI. ENT: Hearing grossly intact. RESPIRATORY: No respiratory distress. C/V: Regular rate and rhythm. ABD: Abdomen is nondistended. EXT: No obvious deformity. SKIN: No rashes or lesions observed on exposed skin. NEURO: Alert and oriented. Limitations: no limitations Course Vital Signs 03/05/24 16:34 Temperature 97.7 F Pulse Rate 78 Respiratory 16 Rate Blood Pressure 116/71 O2 Sat by Pulse 100 Oximetry Medical Decision Making - Medical Decision Making Was pt. sent in by a medical professional or institution (, DREW, TELEVISION PROGRAM DIRECTOR, urgent care, hospital, or [facility]...) When possible be specific @ -No Did you speak to anyone other than the patient for history (EMS, parent, family, police, friend...)? What history was obtained from this source @ -No Did you review nursing and triage notes (agree or disagree)? Why? @ -I reviewed and agree with nursing and triage notes Were old charts reviewed (outside hosp., previous admission, EMS record, old EKG, old radiological studies, urgent care reports/EKG's, [facility] records)? Report findings @ -No old charts were reviewed Differential Diagnosis (chest pain, altered mental status, abdominal pain women, abdominal pain men, vaginal bleeding, weakness, fever, dyspnea, syncope, headache, dizziness, GI bleed, back pain, seizure, CVA, palpatations, mental health, musculoskeletal)? @ -Differential Mental Health Depression, anxiety, bipolar, psychosis, schizophrenia, borderline personality, situational depression, adjustment disorder, behavioral disorder, brain tumor, m alingering, substance abuse, encephalopathy, medication reaction, dementia, hypothyroidism, degenerative neurologic disorder, lupus.... This is not meant to be all-inclusive list EKG interpreted by me (3pts min.). @ -None done X-rays interpreted by me (1pt min.). @ -None done CT interpreted by me (1pt min.). @ -None done U/S interpreted by me (1pt. min.). @ -None done What testing was considered but not performed or refused? (CT, X-rays, U/S, labs)? Why? @ -None What meds were considered but not given or refused? Why? @ -None Did you discuss the management of the patient with other professionals (professionals i.e. DREW Ratliff, TELEVISION PROGRAM DIRECTOR, lab, RT, psych nurse, hospice social worker, bow machine operator, teacher, chemical instrumentation officer, medical case worker)? Give summary @ -EPS notified of the consult Was smoking cessation discussed for >3mins.? @ -No Was critical care preformed (if so, how long)? @ -No Were there social determinants of health that impacted care today? How? (Homelessness, low income, unemployed, alcoholism, drug addiction, transportation, low edu. Level, literacy, decrease access to med. care, assisted, rehab)? @ -No Was there de-escalation of care discussed even if they declined (Discuss DNR or withdrawal of care, Hospice)? DNR status @ -No What co-morbidities impacted this encounter? (DM, HTN, Smoking, COPD, CAD, Cancer, CVA, ARF, Chemo, Hep., AIDS, mental health diagnosis, sleep apnea, morbid obesity)? @ -None Was patient admitted / discharged? Hospital course, mention meds given and route, prescriptions, significant lab abnormalities, going to OR and other pertinent info. @ -Based on patient's presentation and physical exam, patient presents with depression and suicidal ideations. Is asking for basic blood work which will be obtained as well. He is in agreement with the evaluation by psychiatry. EPS notified of the consult. Laboratory studies unremarkable. BAT 0. UDS is pending. Vital signs are within acceptable limits. At this time, patient is medically cleared for evaluation by psychiatry. Disposition pending psychiatric evaluation. EPS notified the consult. EPS evaluated the patient. Patient does not meet inpatient criteria. Will be discharged home with a safety plan. Patient was in agreement this plan. I was in agreement this plan. Undiagnosed new problem with uncertain prognosis? @ -No Drug Therapy requiring intensive monitoring for toxicity (Heparin, Nitro, Insulin, Cardizem)? @ -No Were any procedures done? @ -No Diagnosis/symptom? @ -Encounter for psychiatric evaluation, depression, suicidal ideations Acute, or Chronic, or Acute on Chronic? @ -Acute on chronic Uncomplicated (without systemic symptoms) or Complicated (systemic symptoms)? @ -Complicated Side effects of treatment? @ -None Exacerbation, Progression, or Severe Exacerbation] @ -No Poses a threat to life or bodily function? @ -Unlikely - Lab Data Result diagrams: 03/05/24 20:07 03/05/24 20:07 Lab Results 03/05/24 03/05/24 Range/Units 20:07 20:07 WBC 5.3 (3.8-10.6) k/uL RBC 4.86 (4.30-5.90) m/uL Hgb 15.0 (13.0-17.5) gm/dL Hct 45.2 (39.0-53.0) % MCV 93.1 (80.0-100.0) fL MCH 31.0 (25.0-35.0) pg MCHC 33.3 (31.0-37.0) g/dL RDW 12.2 (11.5-15.5) % Plt Count 244 (150-450) k/uL MPV 6.8 Neutrophils % 49 % Lymphocytes % 39 % Monocytes % 8 % Eosinophils % 2 % Basophils % 1 % Neutrophils # 2.6 (1.3-7.7) k/uL Lymphocytes # 2.1 (1.0-4.8) k/uL Monocytes # 0.4 (0-1.0) k/uL Eosinophils # 0.1 (0-0.7) k/uL Basophils # 0.0 (0-0.2) k/uL Sodium 138 (137-145) mmol/L Potassium 4.3 (3.5-5.1) mmol/L Chloride 107 (98-107) mmol/L Carbon Dioxide 26 (22-30) mmol/L Anion Gap 5 mmol/L BUN 11 (9-20) mg/dL Creatinine 0.77 (0.66-1.25) mg/dL Est GFR (CKD-EPI)AfAm >90 (>60 ml/min/1.73 sqM) Est GFR (CKD-EPI)NonAf >90 (>60 ml/min/1.73 sqM) Glucose 79 (74-99) mg/dL Calcium 9.3 (8.4-10.2) mg/dL Disposition Clinical Impression: Depression, Suicidal ideation Disposition: HOME SELF-CARE Condition: Good Additional Instructions: follow safety plan Is patient prescribed a controlled substance at d/c from ED?: No Referrals: Ramona Gann MD [Primary Care Provider] - 1-2 days Time of Disposition: 22:29
[2024-03-05 23:06] VITALS: BP 115/72; RESP 18
== END 2024-03-05 22:46 | disposition home or self-care (01) ==
LOC: EC 16:32
DX: F32.A Depression, unspecified (principal); R45.851 Suicidal ideations; Z00.8 Encounter for other general examination; F17.290 Nicotine dependence, other tobacco product, uncomplicated; F12.90 Cannabis use, unspecified, uncomplicated; Z91.013 Allergy to seafood
CPT/HCPCS: 36415; 80048; 82075; 85025; 99284

== ENCOUNTER 2024-07-17 16:19 | Emergency (ER) | payer OTHER ==
[2024-07-17 16:46] VITALS: BP 108/64; PULSE 88; RESP 18; TEMP 98
--- NOTE | 2024-07-17 16:47 | ED ---
Chest Pain HPI - General Chief Complaint: Chest Pain Stated Complaint: chest pain Time Seen by Provider: 07/17/24 16:37 Source: patient, RN notes reviewed Mode of arrival: ambulatory Limitations: no limitations - History of Present Illness Initial Comments: 23-year-old male presents emergency department chief complaint of chest pain, shortness of breath. Patient states he has asthma states it has been bothersome states is worse when he is at work. Patient states she does have a history of asthma. Patient states he has noticed some wheezing, no significant productive cough no headache or dizziness no prior cardiac disease no abdominal pain no diaphoretic episodes no leg pain no leg swelling no recent traveling. - Related Data Previous Rx's Medication Instructions Recorded predniSONE 50 mg PO DAILY #5 tab 07/17/24 Allergies Allergy/AdvReac Type Severity Reaction Status Date / Time shellfish derived [Shrimp] Allergy Anaphylaxis Verified 07/17/24 16:46 Review of Systems ROS Statement: Those systems with pertinent positive or pertinent negative responses have been documented in the HPI. ROS Other: All systems not noted in ROS Statement are negative. EKG Findings - EKG Comments: EKG Findings:: EKG performed at 16: 49 sinus rhythm rate 84 TX 156 QRS 91 QT/QTc 347/389 - EKG Results: EKG: interpreted by GREGORYD Past Medical History Past Medical History: Asthma, Hypertension History of Any Multi-Drug Resistant Organisms: None Reported Past Surgical History: No Surgical Hx Reported Past Psychological History: Anxiety Smoking Status: Current every day smoker, Vaper Past Alcohol Use History: Occasional Past Drug Use History: Marijuana General Exam Limitations: no limitations General appearance: alert, in no apparent distress Head exam: Present: atraumatic, normocephalic, normal inspection Eye exam: Present: normal appearance, PERRL, EOMI. Absent: scleral icterus, conjunctival injection, periorbital swelling ENT exam: Present: normal exam, normal oropharynx, mucous membranes moist Neck exam: Present: normal inspection, full ROM. Absent: tenderness, meningismus, lymphadenopathy Respiratory exam: Present: wheezes, chest wall tenderness. Absent: respiratory distress, rales, rhonchi, stridor Cardiovascular Exam: Present: regular rate, normal rhythm, normal heart sounds. Absent: systolic murmur, diastolic murmur, rubs, gallop, clicks GI/Abdominal exam: Present: soft, normal bowel sounds. Absent: distended, tenderness, guarding, rebound, rigid Course Vital Signs 07/17/24 16:42 Temperature 98 F Pulse Rate 88 Respiratory 18 Rate Blood Pressure 108/64 O2 Sat by Pulse 99 Oximetry Chest Pain MDM - MDM Was pt. sent in by a medical professional or institution (, DREW, E TAILER, urgent care, hospital, or assisted...) When possible be specific @ -No Did you speak to anyone other than the patient for history (EMS, parent, family, police, friend...)? What history was obtained from this source @ -No Did you review nursing and triage notes (agree or disagree)? Why? @ -I reviewed and agree with nursing and triage notes Were old charts reviewed (outside hosp., previous admission, EMS record, old EKG, old radiological studies, urgent care reports/EKG's, assisted records)? Report findings @ -No old charts were reviewed Differential Diagnosis (chest pain, altered mental status, abdominal pain women, abdominal pain men, vaginal bleeding, weakness, fever, dyspnea, syncope, headache, dizziness, GI bleed, back pain, seizure, CVA, palpatations, mental health, musculoskeletal)? @ -Differential Dyspnea: Coronary syndrome, arrhythmia, tamponade, asthma, COPD, pulmonary embolism, pneumonia, pneumothorax, pulmonary effusion, anaphylaxis, diabetic ketoacidosis, flailed chest, pulmonary contusion, diaphragmatic rupture, anemia, neuromuscular, this is not meant to be an all-inclusive list. EKG interpreted by me (3pts min.). @ -As above X-rays interpreted by me (1pt min.). @ -[X-ray shows no acute cardiopulmonary process CT interpreted by me (1pt min.). @ -None done U/S interpreted by me (1pt. min.). @ -None done What testing was considered but not performed or refused? (CT, X-rays, U/S, labs)? Why? @ -None What meds were considered but not given or refused? Why? @ -None Did you discuss the management of the patient with other professionals (professionals i.e. DREW Ratliff, E TAILER, lab, RT, psych nurse, delinquency prevention social worker, compounder flavorings, teacher, special weapons unit officer, classification case manager)? Give summary @ -No Was smoking cessation discussed for >3mins.? @ -No Was critical care preformed (if so, how long)? @ -No Were there social determinants of health that impacted care today? How? (Homelessness, low income, unemployed, alcoholism, drug addiction, transportation, low edu. Level, literacy, decrease access to med. care, prison, rehab)? @ -No Was there de-escalation of care discussed even if they declined (Discuss DNR or withdrawal of care, Hospice)? DNR status @ -No What co-morbidities impacted this encounter? (DM, HTN, Smoking, COPD, CAD, Cancer, CVA, ARF, Chemo, Hep., AIDS, mental health diagnosis, sleep apnea, morbid obesity)? @ -Asthma Was patient admitted / discharged? Hospital course, mention meds given and route, prescriptions, significant lab abnormalities, going to OR and other pertinent info. @ -Discharge patient presented for mild shortness of breath, chest wall pain patient has reproducible chest wall pain with normal EKG, chest x-ray no acute process patient does have underlying asthma mild wheezing discharged with steroids, patient will follow-up tomorrow return parens discussed. Undiagnosed new problem with uncertain prognosis? @ -No Drug Therapy requiring intensive monitoring for toxicity (Heparin, Nitro, Insulin, Cardizem)? @ -No Were any procedures done? @ -No Diagnosis/symptom? @ -Chest wall pain, asthma Acute, or Chronic, or Acute on Chronic? @ -Acute Uncomplicated (without systemic symptoms) or Complicated (systemic symptoms)? @ -Uncomplicated Side effects of treatment? @ -No Exacerbation, Progression, or Severe Exacerbation? @ -No Poses a threat to life or bodily function? How? (Chest pain, USA, [place], pneumonia, PE, COPD, DKA, ARF, appy, cholecystitis, CVA, Diverticulitis, Homicidal, Suic idal, threat to staff... and all critical care pts) @ -No Disposition Clinical Impression: Asthma, Chest wall pain Disposition: HOME SELF-CARE Condition: Stable Instructions (If sedation given, give patient instructions): Chest Pain (ED) Additional Instructions: Please return to the Emergency Department if symptoms worsen or any other concerns. Prescriptions: predniSONE 50 mg PO DAILY #5 tab Is patient prescribed a controlled substance at d/c from ED?: No Referrals: Ramona Gann MD [Primary Care Provider] - 1-2 days Time of Disposition: 17:50
--- NOTE | 2024-07-17 17:22 | XR ---
EXAMINATION TYPE: XR chest 2V DATE OF EXAM: 07/17/2024 COMPARISON: 10/13/2019 HISTORY: Chest pain TECHNIQUE: Frontal and lateral views of the chest are obtained. FINDINGS: There is no focal air space opacity, pleural effusion, or pneumothorax seen. The cardiac silhouette size is within normal limits. The osseous structures are intact. IMPRESSION: No acute cardiopulmonary process. [facility], , 07/17/2024 5:20 PM
== END 2024-07-17 18:04 | disposition home or self-care (01) ==
LOC: EC 16:19
DX: R07.9 Chest pain, unspecified
CPT/HCPCS: 71046; 93005; 99284

== ENCOUNTER 2024-08-26 12:33 | Emergency (ER) | payer OTHER ==
[2024-08-26 12:37] VITALS: PULSE 101; RESP 18; TEMP 97.5
--- NOTE | 2024-08-26 13:02 | ED ---
Chest Pain HPI - General Chief Complaint: Chest Pain Stated Complaint: Chest pain Time Seen by Provider: 08/26/24 12:40 Source: patient, RN notes reviewed Mode of arrival: ambulatory Limitations: no limitations - History of Present Illness Initial Comments: 23 year old male presents to the ED with Chief complaint of chest pain. He states that he has been seen in the ED multiple times in the past, but all of the testing has been inconclusive. Today, he states that he has had chest pain x 3 months that is constant, non radiating, and is associated with numbness and tingling in bilateral fingers and toes. He states that yesterday while playing video games he stretched behind his back and his sternum popped exacerbating his pain. He denies shortness of breath, palpitations, fever, and syncope. - Related Data Previous Rx's Medication Instructions Recorded predniSONE 50 mg PO DAILY #5 tab 07/17/24 Allergies Allergy/AdvReac Type Severity Reaction Status Date / Time shellfish derived [Shrimp] Allergy Anaphylaxis Verified 08/26/24 12:37 Review of Systems ROS Statement: Those systems with pertinent positive or pertinent negative responses have been documented in the HPI. ROS Other: All systems not noted in ROS Statement are negative. EKG Findings - EKG Comments: EKG Findings:: EKG performed at 12: 56 sinus tachycardia rate of 113 QRS 136 QRS 88 QT/QTc 340/411 - EKG Results: EKG: interpreted by GUALBERTO Past Medical History Past Medical History: Asthma, Hypertension History of Any Multi-Drug Resistant Organisms: None Reported Past Surgical History: No Surgical Hx Reported Past Psychological History: Anxiety Smoking Status: Current every day smoker, Vaper Past Alcohol Use History: Occasional Past Drug Use History: Marijuana General Exam Limitations: no limitations General appearance: alert, in no apparent distress Head exam: Present: atraumatic, normocephalic, normal inspection Eye exam: Present: normal appearance, PERRL, EOMI. Absent: scleral icterus, conjunctival injection, periorbital swelling ENT exam: Present: normal exam, mucous membranes moist Neck exam: Present: normal inspection. Absent: tenderness, meningismus, lymphadenopathy Respiratory exam: Present: normal lung sounds bilaterally, chest wall tenderness. Absent: respiratory distress, wheezes, rales, rhonchi, stridor Cardiovascular Exam: Present: regular rate, normal rhythm, normal heart sounds. Absent: systolic murmur, diastolic murmur, rubs, gallop, clicks GI/Abdominal exam: Present: soft, normal bowel sounds. Absent: distended, tenderness, guarding, rebound, rigid Extremities exam: Present: normal inspection, full ROM, normal capillary refill. Absent: tenderness, pedal edema, joint swelling, calf tenderness Back exam: Present: normal inspection Neurological exam: Present: alert, oriented X3, CN II-XII intact Psychiatric exam: Present: normal affect, normal mood Skin exam: Present: warm, dry, intact, normal color. Absent: rash Course Vital Signs 08/26/24 08/26/24 12:35 13:37 Temperature 97.5 F L Pulse Rate 101 H Respiratory 18 Rate Blood Pressure 106/69 O2 Sat by Pulse 100 Oximetry Chest Pain MDM - MDM Was pt. sent in by a medical professional or institution (, PA, PORTFOLIO SPECIALIST, urgent care, hospital, or prison...) When possible be specific @ -No Did you speak to anyone other than the patient for history (EMS, parent, family, police, friend...)? What history was obtained from this source @ -No Did you review nursing and triage notes (agree or disagree)? Why? @ -I reviewed and agree with nursing and triage notes Were old charts reviewed (outside hosp., previous admission, EMS record, old EKG, old radiological studies, urgent care reports/EKG's, prison records)? Report findings @ -No old charts were reviewed Differential Diagnosis (chest pain, altered mental status, abdominal pain women, abdominal pain men, vaginal bleeding, weakness, fever, dyspnea, syncope, headache, dizziness, GI bleed, back pain, seizure, CVA, palpatations, mental health, musculoskeletal)? @ -Differential Chest Pain: Stable Angina, Unstable Angina, STEMI, NSTEMI Aortic Dissection, Pneumothorax, Musculoskeletal, Esophageal Spasm GERD, Cholecystitis, Pancreatitis, Zoster, this is not meant to be an all-inclusive list. EKG interpreted by me (3pts min.). @ -As above X-rays interpreted by me (1pt min.). @ -[Chest x-ray shows no acute cardiopulmonary process CT interpreted by me (1pt min.). @ -None done U/S interpreted by me (1pt. min.). @ -None done What testing was considered but not performed or refused? (CT, X-rays, U/S, labs)? Why? @ -None What meds were considered but not given or refused? Why? @ -None Did you discuss the management of the patient with other professionals (professionals i.e. , PA, PORTFOLIO SPECIALIST, lab, RT, psych nurse, social media marketing analyst, medical claims manager, teacher, gift officer, piano case and bench assembler)? Give summary @ -No Was smoking cessation discussed for >3mins.? @I discussed smoking cessation for greater than 3 minutes. The risk of smoking were discussed with the patient including but not limited to risks of cancer, stroke, coronary artery disease and COPD. Also discussed with patient were multiple methods of quitting smoking. Lastly we discussed the financial cost of smoking. Was critical care preformed (if so, how long)? @ -No Were there social determinants of health that impacted care today? How? (Homelessness, low income, unemployed, alcoholism, drug addiction, transportation, low edu. Level, literacy, decrease access to med. care, fpc, rehab)? @ -No Was there de-escalation of care discussed even if they declined (Discuss DNR or withdrawal of care, Hospice)? DNR status @ -No What co-morbidities impacted this encounter? (DM, HTN, Smoking, COPD, CAD, Cancer, CVA, ARF, Chemo, Hep., AIDS, mental health diagnosis, sleep apnea, morbid obesity)? @ -None Was patient admitted / discharged? Hospital course, mention meds given and route, prescriptions, significant lab abnormalities, going to OR and other pertinent info. @ -Charge patient presented for chest wall pain. This has been ongoing chronic issue patient has seen cardiology and had a stress test. Patient is discharged with follow-up with PCP we did discuss smoking cessation Undiagnosed new problem with uncertain prognosis? @ -No Drug Therapy requiring intensive monitoring for toxicity (Heparin, Nitro, Insulin, Cardizem)? @ -No Were any procedures done? @ -No Diagnosis/symptom? @ -Chest wall pain Acute, or Chronic, or Acute on Chronic? @ -Acute Uncomplicated (without systemic symptoms) or Complicated (systemic symptoms)? @ -uncomplicated Side effects of treatment? @ -No Exacerbation, Progression, or Severe Exacerbation? @ -No Poses a threat to life or bodily function? How? (Chest pain, [place], [place], pneumonia, PE, COPD, DKA, ARF, appy, cholecystitis, CVA, Diverticulitis, Homicidal, Suicidal, threat to staff... and all critical care pts) @ -No Disposition Clinical Impression: Chest wall pain Disposition: HOME SELF-CARE Condition: Stable Instructions (If sedation given, give patient instructions): Costochondritis (ED) Additional Instructions: Please return to the Emergency Department if symptoms worsen or any other concerns. Is patient prescribed a controlled substance at d/c from ED?: No Referrals: Ramona Gann MD [Primary Care Provider] - 1-2 days Time of Disposition: 14:25
--- NOTE | 2024-08-26 13:44 | XR ---
EXAMINATION TYPE: XR chest 2V DATE OF EXAM: 08/26/2024 1:11 PM COMPARISON: Chest radiographs from 07/17/2024 CLINICAL INDICATION: Male, 23 years old with history of Chest pain; [facility] TECHNIQUE: XR chest 2V Frontal and lateral views of the chest. FINDINGS: Lungs/Pleura: There is no evidence of pleural effusion, focal consolidation, or pneumothorax. Pulmonary vascularity: Unremarkable. Heart/mediastinum: Cardiomediastinal silhouette is unremarkable. Musculoskeletal: No acute osseous pathology. IMPRESSION: No acute cardiopulmonary disease/process. [facility], , 08/26/2024 1:41 PM
[2024-08-26 14:25] VITALS: BP 106/69
== END 2024-08-26 14:37 | disposition home or self-care (01) ==
LOC: EC 12:33
DX: R07.89 Other chest pain (principal); F17.290 Nicotine dependence, other tobacco product, uncomplicated; Z91.013 Allergy to seafood
CPT/HCPCS: 71046; 93005; 99285; 99406

== ENCOUNTER 2025-01-04 13:50 | Emergency (ER) | payer OTHER ==
[2025-01-04 14:22] VITALS: RESP 16; TEMP 98
--- NOTE | 2025-01-04 15:03 | ED ---
General Adult HPI - General Source: patient, RN notes reviewed, old records reviewed Mode of arrival: ambulatory Limitations: no limitations <Bruce Daily - Last Filed: 01/04/25 15:01> <Myrna Manning - Last Filed: 01/04/25 23:48> - General Chief complaint: Weakness Stated complaint: weakness Time Seen by Provider: 01/04/25 14:50 - History of Present Illness Initial comments: Patient is a 24-year-old male who presents emergency department complaining of weakness, fatigue. Has been ongoing for months but seems to be worse lately. Denies any other focal symptoms. States he is pretty active. Does not do drugs but does vape. He also complains of fatigue. No fevers or chills or sick contacts. No other acute complaints. Presents for further evaluation. States he has followed up with his PCP for similar complaints with no obvious findings. Specifically is asking about thyroid function. (Bruce Daily) - Related Data Previous Rx's Medication Instructions Recorded predniSONE 50 mg PO DAILY #5 tab 07/17/24 Allergies Allergy/AdvReac Type Severity Reaction Status Date / Time shellfish derived [Shrimp] Allergy Anaphylaxis Verified 01/04/25 14:22 Review of Systems ROS Other: All systems not noted in ROS Statement are negative. <Bruce Daily - Last Filed: 01/04/25 15:01> ROS Other: All systems not noted in ROS Statement are negative. <Myrna Manning - Last Filed: 01/04/25 23:48> ROS Statement: Those systems with pertinent positive or pertinent negative responses have been documented in the HPI. Review of Systems: CONST: Denies fever EYES: Denies blurry vision ENT: Denies nasal congestion C/V: Denies Chest pain RESP: Denies shortness of breath GI: Denies abdominal pain : Denies dysuria SKIN: Denies rash. MSK: Denies joint pain. NEURO: Denies headache (Bruce Daily) Past Medical History Past Medical History: Asthma, Hypertension History of Any Multi-Drug Resistant Organisms: None Reported Past Surgical History: No Surgical Hx Reported Past Psychological History: Anxiety Smoking Status: Current every day smoker, Vaper Past Alcohol Use History: Occasional Past Drug Use History: Marijuana <Bruce Daily - Last Filed: 01/04/25 15:01> General Exam Limitations: no limitations <Bruce Daily - Last Filed: 01/04/25 15:01> - General Exam Comments Initial Comments: General: Appears in no acute distress. HEAD: Normal with no signs of head trauma. EYES: PERRLA, EOMI, conjunctiva normal, no discharge. ENT: Hearing grossly intact, normal oropharynx. RESPIRATORY: Clear breath sounds bilaterally. No wheezes, rales, or rhonchi. C/V: Regular rate and rhythm. S1 and S2 auscultated, no edema, peripheral pulses 2+ and intact throughout ABD: Abd is soft, nontender, nondistended EXT: Normal range of motion, no obvious deformity SKIN: No rashes or lesions observed on exposed skin. NEURO: Alert and oriented x 4. Cranial nerves II-XII intact. No focal sensory or strength deficits. (Bruce Daily) Course Vital Signs 01/04/25 01/04/25 14:19 18:00 Temperature 98.0 F Pulse Rate 86 70 Respiratory 16 16 Rate Blood Pressure 120/78 113/53 O2 Sat by Pulse 100 98 Oximetry Medical Decision Making <Bruce Daily - Last Filed: 01/04/25 15:01> - Lab Data Result diagrams: 01/04/25 15:26 01/04/25 15:26 <Myrna Manning - Last Filed: 01/04/25 23:48> - Medical Decision Making Was pt. sent in by a medical professional or institution (DREW Ratliff, CARPENTER REFRIGERATOR, urgent care, hospital, or senior care...) When possible be specific @ -No Did you speak to anyone other than the patient for history (EMS, parent, family, police, friend...)? What history was obtained from this source @ -No Did you review nursing and triage notes (agree or disagree)? Why? @ -I reviewed and agree with nursing and triage notes Were old charts reviewed (outside hosp., previous admission, EMS record, old EKG, old radiological studies, urgent care reports/EKG's, senior care records)? Report findings @ -No old charts were reviewed Differential Diagnosis (chest pain, altered mental status, abdominal pain women, abdominal pain men, vaginal bleeding, weakness, fever, dyspnea, syncope, headache, dizziness, GI bleed, back pain, seizure, CVA, palpatations, mental health, musculoskeletal)? @ -Dehydration, rhabdomyolysis, hypo or hyperthyroidism, electrolyte abnormality. This list is not all inclusive. EKG interpreted by me (3pts min.). @ -As above X-rays interpreted by me (1pt min.). @ -Pending CT interpreted by me (1pt min.). @ -None done U/S interpreted by me (1pt. min.). @ -None done What testing was considered but not performed or refused? (CT, X-rays, U/S, labs)? Why? @ -None What meds were considered but not given or refused? Why? @ -None Did you discuss the management of the patient with other professionals (professionals i.e. , PA, CARPENTER REFRIGERATOR, lab, RT, psych nurse, medical social worker, pinion staker, teacher, electorate officer, corrections caseworker)? Give summary @ -No Was smoking cessation discussed for >3mins.? @ -No Was critical care preformed (if so, how long)? @ -No Were there social determinants of health that impacted care today? How? (Homele ssness, low income, unemployed, alcoholism, drug addiction, transportation, low edu. Level, literacy, decrease access to med. care, [facility], rehab)? @ -No Was there de-escalation of care discussed even if they declined (Discuss DNR or withdrawal of care, Hospice)? DNR status @ -No What co-morbidities impacted this encounter? (DM, HTN, Smoking, COPD, CAD, Cancer, CVA, ARF, Chemo, Hep., AIDS, mental health diagnosis, sleep apnea, morbid obesity)? @ -None Was patient admitted / discharged? Hospital course, mention meds given and route, prescriptions, significant lab abnormalities, going to OR and other pertinent info. @ -Patient is a 24-year-old male presents emergency department nonspecific f atigue that is somewhat chronic but worse over the last few days. No other significant symptoms. Is asking to have a workup. Vital signs are within acceptable limits. This patient is concerned about thyroid function we will obtain basic labs, urine study if he can provide us with 1, viral swabs, chest x-ray, screening EKG. Was given IV fluids. He was in agreement this plan. At this time is the end my shift. Patient signed out to oncoming emergency department physician, Dr. Manning pending results of workup. Undiagnosed new problem with uncertain prognosis? @ -No Drug Therapy requiring intensive monitoring for toxicity (Heparin, Nitro, Insulin, Cardizem)? @ -No Were any procedures done? @ -No (Bruce Daily) EKG demonstrates sinus rhythm with a rate of 68. [place] interval 142. QRS 83. QTc of 396. No acute ST segment elevations or depressions Was patient admitted / discharged? Hospital course, mention meds given and route, prescriptions, significant lab abnormalities, going to OR and other pertinent info. @ -[hospital course] Undiagnosed new problem with uncertain prognosis? @ -[No] Drug Therapy requiring intensive monitoring for toxicity (Heparin, Nitro, Insulin, Cardizem)? @ -[No] Were any procedures done? @ -[No] Diagnosis/symptom? @ -[default] Acute, or Chronic, or Acute on Chronic? @ -[default] Uncomplicated (without systemic symptoms) or Complicated (systemic symptoms)? @ -[default] Side effects of treatment? @ -[No] Exacerbation, Progression, or Severe Exacerbation? @ -[No] Poses a threat to life or bodily function? How? (Chest pain, [place], [place], pneumonia, PE, COPD, DKA, ARF, appy, cholecystitis, CVA, Diverticulitis, Homicidal, Suicidal, threat to staff... and all critical care pts) @ -[No] (Myrna Manning) - Lab Data Lab Results 01/04/25 01/04/25 01/04/25 Range/Units 14:23 14:59 15:26 WBC 4.6 (3.8-10.6) k/uL RBC 5.12 (4.30-5.90) m/uL Hgb 15.6 (13.0-17.5) gm/dL Hct 47.9 (39.0-53.0) % MCV 93.5 (80.0-100.0) fL MCH 30.5 (25.0-35.0) pg MCHC 32.6 (31.0-37.0) g/dL RDW 12.1 (11.5-15.5) % Plt Count 243 (150-450) k/uL MPV 6.5 Neutrophils % 51 % Lymphocytes % 37 % Monocytes % 7 % Eosinophils % 1 % Basophils % 0 % Neutrophils # 2.3 (1.3-7.7) k/uL Lymphocytes # 1.7 (1.0-4.8) k/uL Monocytes # 0.3 (0-1.0) k/uL Eosinophils # 0.0 (0-0.7) k/uL Basophils # 0.0 (0-0.2) k/uL Sodium (137-145) mmol/L Potassium (3.5-5.1) mmol/L Chloride (98-107) mmol/L Carbon Dioxide (22-30) mmol/L Anion Gap mmol/L BUN (9-20) mg/dL Creatinine (0.66-1.25) mg/dL Est GFR (CKD-EPI)AfAm (>60 ml/min/1.73 sqM) Est GFR (CKD-EPI)NonAf (>60 ml/min/1.73 sqM) Glucose (74-99) mg/dL Plasma Lactic Acid George (0.7-2.0) mmol/L Calcium (8.4-10.2) mg/dL Magnesium (1.6-2.3) mg/dL Total Bilirubin (0.2-1.3) mg/dL AST (17-59) U/L ALT (4-49) U/L Alkaline Phosphatase (38-126) U/L Creatine Kinase (55-170) U/L Total Protein (6.3-8.2) g/dL Albumin (3.5-5.0) g/dL TSH (0.465-4.680) mIU/L Urine Color Colorless Urine Appearance Clear (Clear) Urine pH 7.5 (5.0-8.0) Ur Specific [place] 1.009 (1.001-1.035) Urine Protein Negative (Negative) Urine Glucose (UA) Negative (Negative) Urine Ketones Negative (Negative) Urine Blood Negative (Negative) Urine Nitrite Negative (Negative) Urine Bilirubin Negative (Negative) Urine Urobilinogen <2.0 (<2.0) mg/dL Ur Leukocyte Esterase Negative (Negative) Influenza Type A (PCR) Not Detected (Not Detectd) Influenza Type B (PCR) Not Detected (Not Detectd) RSV (PCR) Not Detected (Not Detectd) SARS-CoV-2 (PCR) Not Detected (Not Detectd) 01/04/25 01/04/25 Range/Units 15:26 15:26 WBC (3.8-10.6) k/uL RBC (4.30-5.90) m/uL Hgb (13.0-17.5) gm/dL Hct (39.0-53.0) % MCV (80.0-100.0) fL MCH (25.0-35.0) pg MCHC (31.0-37.0) g/dL RDW (11.5-15.5) % Plt Count (150-450) k/uL MPV Neutrophils % % Lymphocytes % % Monocytes % % Eosinophils % % Basophils % % Neutrophils # (1.3-7.7) k/uL Lymphocytes # (1.0-4.8) k/uL Monocytes # (0-1.0) k/uL Eosinophils # (0-0.7) k/uL Basophils # (0-0.2) k/uL Sodium 138 (137-145) mmol/L Potassium 4.3 (3.5-5.1) mmol/L Chloride 102 (98-107) mmol/L Carbon Dioxide 30 (22-30) mmol/L Anion Gap 6 mmol/L BUN 14 (9-20) mg/dL Creatinine 0.75 (0.66-1.25) mg/dL Est GFR (CKD-EPI)AfAm >90 (>60 ml/min/1.73 sqM) Est GFR (CKD-EPI)NonAf >90 (>60 ml/min/1.73 sqM) Glucose 92 (74-99) mg/dL Plasma Lactic Acid George 0.8 (0.7-2.0) mmol/L Calcium 9.6 (8.4-10.2) mg/dL Magnesium 2.2 (1.6-2.3) mg/dL Total Bilirubin 0.7 (0.2-1.3) mg/dL AST 38 (17-59) U/L ALT 28 (4-49) U/L Alkaline Phosphatase 136 H (38-126) U/L Creatine Kinase 566 H (55-170) U/L Total Protein 7.5 (6.3-8.2) g/dL Albumin 4.5 (3.5-5.0) g/dL TSH 1.490 (0.465-4.680) mIU/L Urine Color Urine Appearance (Clear) Urine pH (5.0-8.0) Ur Specific [place] (1.001-1.035) Urine Protein (Negative) Urine Glucose (UA) (Negative) Urine Ketones (Negative) Urine Blood (Negative) Urine Nitrite (Negative) Urine Bilirubin (Negative) Urine Urobilinogen (<2.0) mg/dL Ur Leukocyte Esterase (Negative) Influenza Type A (PCR) (Not Detectd) Influenza Type B (PCR) (Not Detectd) RSV (PCR) (Not Detectd) SARS-CoV-2 (PCR) (Not Detectd) Disposition <Bruce Daily - Last Filed: 01/04/25 15:01> Is patient prescribed a controlled substance at d/c from ED?: No Time of Disposition: 17:35 <Myrna Manning - Last Filed: 01/04/25 23:48> Clinical Impression: Fatigue Disposition: HOME SELF-CARE Condition: Stable Instructions (If sedation given, give patient instructions): Fatigue (ED) Additional Instructions: Please follow-up with your primary care doctor. I recommend further testing to include hormone levels, possible echo. Return to the emergency room for any new or worsening symptoms Referrals: Ramona Gann MD [Primary Care Provider] - 1-2 days
[2025-01-04 15:06] LABS: Influenza A Not Detected (Not Detectd); Influenza B Not Detected (Not Detectd); RSV Not Detected (Not Detectd)
[2025-01-04] MEDS: SODIUM CHLORIDE 0.9% 1,000 ML IV ONE (15:17)
[2025-01-04 15:48] LABS: Basophils % (A) 0 %; Eosinophils % (A) 1 %; HCT 47.9 % (39.0-53.0); HGB 15.6 gm/dL (13.0-17.5); Lymphocytes # (A) 1.7 k/uL (1.0-4.8); Lymphocytes % (A) 37 %; MCH 30.5 pg (25.0-35.0); MCHC 32.6 g/dL (31.0-37.0); MCV 93.5 fL (80.0-100.0); Mean Platelet Volume 6.5; Monocytes # (A) 0.3 k/uL (0-1.0); Monocytes % (A) 7 %; Neutrophils # (A) 2.3 k/uL (1.3-7.7); Neutrophils % (A) 51 %; Platelet Count 243 k/uL (150-450); RBC 5.12 m/uL (4.30-5.90); RDW 12.1 % (11.5-15.5); WBC 4.6 k/uL (3.8-10.6)
--- NOTE | 2025-01-04 15:57 | XR ---
EXAMINATION TYPE: XR chest 2V DATE OF EXAM: 01/04/2025 3:35 PM COMPARISON: 08/26/2024 CLINICAL INDICATION: Male, 24 years old with history of fatigue; TECHNIQUE: XR chest 2V Frontal and lateral views of the chest. FINDINGS: Lungs/Pleura: There is no evidence of pleural effusion, focal consolidation, or pneumothorax. Pulmonary vascularity: Unremarkable. Heart/mediastinum: Cardiomediastinal silhouette is unremarkable. Musculoskeletal: No acute osseous pathology. IMPRESSION: No acute cardiopulmonary disease/process. [facility], , 01/04/2025 3:54 PM
[2025-01-04 16:00] LABS: ALT 28 U/L (4-49); AST 38 U/L (17-59); African American GFR (CKD) >90 (>60 ml/min/1.73 sqM); Albumin 4.5 g/dL (3.5-5.0); Alkaline Phosphatase 136 U/L (38-126); Anion Gap 6 mmol/L; Blood Urea Nitrogen 14 mg/dL (9-20); Calcium 9.6 mg/dL (8.4-10.2); Carbon Dioxide 30 mmol/L (22-30); Chloride 102 mmol/L (98-107); Creatine Kinase 566 U/L (55-170); Glucose 92 mg/dL (74-99); Magnesium 2.2 mg/dL (1.6-2.3); Non-African American GFR(CKD) >90 (>60 ml/min/1.73 sqM); Potassium 4.3 mmol/L (3.5-5.1); Sodium 138 mmol/L (137-145); Total Bilirubin 0.7 mg/dL (0.2-1.3); Total Protein 7.5 g/dL (6.3-8.2)
[2025-01-04 16:00] LABS: Appearance,Urine Clear (Clear); Bilirubin,Urine Negative (Negative); Blood,Urine Negative (Negative); Color,Urine Colorless; Glucose,Urine (UA) Negative (Negative); Ketones,Urine Negative (Negative); Leukocyte Esterase,Urine Negative (Negative); Nitrite,Urine Negative (Negative); PH, Urine 7.5 (5.0-8.0); Protein,Urine Negative (Negative); Specific Gravity,Urine 1.009 (1.001-1.035); Urobilinogen,Urine <2.0 mg/dL (<2.0)
[2025-01-04 18:02] VITALS: BP 113/53; PULSE 70
== END 2025-01-04 18:01 | disposition home or self-care (01) ==
LOC: EC 13:50
DX: R42 Dizziness and giddiness (principal); F17.290 Nicotine dependence, other tobacco product, uncomplicated; Z91.013 Allergy to seafood
CPT/HCPCS: 36415; 71046; 80053; 81003; 82550; 83605; 83735; 84443; 85025; 87636; 93005; 96360; 96361; 99285

== ENCOUNTER 2025-02-27 10:49 | Emergency (ER) | payer OTHER ==
--- NOTE | 2025-02-27 11:19 | ED ---
General Adult HPI - General Chief complaint: Extremity Injury, Upper Stated complaint: R hand injury Time Seen by Provider: 02/27/25 10:55 Source: patient, RN notes reviewed Mode of arrival: ambulatory Limitations: no limitations - History of Present Illness Initial comments: 24 year old male presents today with right hand swelling and pain mainly near t heir thumb. Pt reports that he punched a wall yesterday with that hand and has been having continuous pain since then which he rates as a 6/10 at this time. Denies any paresthesias no lacerations no other associated symptoms. - Related Data Previous Rx's Medication Instructions Recorded predniSONE 50 mg PO DAILY #5 tab 07/17/24 Allergies Allergy/AdvReac Type Severity Reaction Status Date / Time shellfish derived [Shrimp] Allergy Anaphylaxis Verified 02/27/25 10:52 Review of Systems ROS Statement: Those systems with pertinent positive or pertinent negative responses have been documented in the HPI. ROS Other: All systems not noted in ROS Statement are negative. Past Medical History Past Medical History: Asthma, Hypertension History of Any Multi-Drug Resistant Organisms: None Reported Past Surgical History: No Surgical Hx Reported Past Psychological History: Anxiety Smoking Status: Current every day smoker, Vaper Past Alcohol Use History: Occasional Past Drug Use History: Marijuana General Exam Limitations: no limitations General appearance: alert, in no apparent distress Head exam: Present: atraumatic, normocephalic, normal inspection Eye exam: Present: normal appearance, PERRL, EOMI. Absent: scleral icterus, conjunctival injection, periorbital swelling Respiratory exam: Present: normal lung sounds bilaterally. Absent: respiratory distress, wheezes, rales, rhonchi, stridor Cardiovascular Exam: Present: regular rate, normal rhythm, normal heart sounds. Absent: systolic murmur, diastolic murmur, rubs, gallop, clicks Extremities exam: Present: normal inspection, full ROM, tenderness (Tenderness around the right thumb on both dorsal and ventral aspects ), normal capillary refill. Absent: pedal edema, joint swelling, calf tenderness Skin exam: Present: warm, dry, intact, normal color. Absent: rash Course Vital Signs 02/27/25 10:50 Temperature 97.8 F Pulse Rate 90 Respiratory 118 H Rate Blood Pressure 110/81 O2 Sat by Pulse 99 Oximetry Medical Decision Making - Medical Decision Making Was pt. sent in by a medical professional or institution (Dr., PA, HEDIS COORDINATOR, urgent care, hospital, or longterm...) When possible be specific @ -No Did you speak to anyone other than the patient for history (EMS, parent, family, police, friend...)? What history was obtained from this source @ -No Did you review nursing and triage notes (agree or disagree)? Why? @ -I reviewed and agree with nursing and triage notes Were old charts reviewed (outside hosp., previous admission, EMS record, old EKG, old radiological studies, urgent care reports/EKG's, longterm records)? Report findings @ -No old charts were reviewed Differential Diagnosis (chest pain, altered mental status, abdominal pain women, abdominal pain men, vaginal bleeding, weakness, fever, dyspnea, syncope, headache, dizziness, GI bleed, back pain, seizure, CVA, palpatations, mental health, musculoskeletal)? @ -Hand sprain, hand contusion, hand fracture EKG interpreted by me (3pts min.). @ -None X-rays interpreted by me (1pt min.). @ -X-ray hand no acute fracture or osseous abnormality. CT interpreted by me (1pt min.). @ -None done U/S interpreted by me (1pt. min.). @ -None done What testing was considered but not performed or refused? (CT, X-rays, U/S, labs)? Why? @ -None What meds were considered but not given or refused? Why? @ -None Did you discuss the management of the patient with other professionals (professionals i.e. DREW Ratliff, HEDIS COORDINATOR, lab, RT, psych nurse, group social worker, engineering vice president, teacher, sustainability officer, case hardener)? Give summary @ -No Was smoking cessation discussed for >3mins.? @ -No Was critical care preformed (if so, how long)? @ -No Were there social determinants of health that impacted care today? How? (Homelessness, low income, unemployed, alcoholism, drug addiction, transportation, low edu. Level, literacy, decrease access to med. care, [facility], rehab)? @ -No Was there de-escalation of care discussed even if they declined (Discuss DNR or withdrawal of care, Hospice)? DNR status @ -No What co-morbidities impacted this encounter? (DM, HTN, Smoking, COPD, CAD, Cancer, CVA, ARF, Chemo, Hep., AIDS, mental health diagnosis, sleep apnea, morbid obesity)? @ -None Was patient admitted / discharged? Hospital course, mention meds given and route, prescriptions, significant lab abnormalities, going to OR and other pertinent info. @ -Discharge patient has right hand sprain. Patient was discharged in stable condition return parameters alexander. Undiagnosed new problem with uncertain prognosis? @ -No Drug Therapy requiring intensive monitoring for toxicity (Heparin, Nitro, Insulin, Cardizem)? @ -No Were any procedures done? @ -No Diagnosis/symptom? @ -Hand sprain Acute, or Chronic, or Acute on Chronic? @ -Acute Uncomplicated (without systemic symptoms) or Complicated (systemic symptoms)? @ -[Uncomplicated Side effects of treatment? @ -No Exacerbation, Progression, or Severe Exacerbation? @ -No Poses a threat to life or bodily function? How? (Chest pain, [place], [place], pneumonia, PE, COPD, DKA, ARF, appy, cholecystitis, CVA, Diverticulitis, Homicidal, Suicidal, threat to staff... and all critical care pts) @ -No Disposition Clinical Impression: Sprain of hand Disposition: HOME SELF-CARE Condition: Stable Instructions (If sedation given, give patient instructions): Hand Sprain (ED) Additional Instructions: Please return to the Emergency Department if symptoms worsen or any other concerns. Is patient prescribed a controlled substance at d/c from ED?: No Referrals: Ramona Gann MD [Primary Care Provider] - 1-2 days Ghanshyam Austin MD [STAFF PHYSICIAN] - 1-2 days Time of Disposition: 11:36
--- NOTE | 2025-02-27 11:27 | XR ---
EXAMINATION TYPE: XR hand complete RT DATE OF EXAM: 02/27/2025 11:22 AM INDICATION: Patient age:Male; 24 years old; Reason for study: pain; PHH. pain COMPARISON: None TECHNIQUE: Frontal, lateral and oblique views of the right hand were obtained. FINDINGS: Normal alignment of the visualized joints. No acute osseous pathology is identified. No e vidence of soft tissue swelling. No radiopaque foreign body. IMPRESSION: No acute osseous pathology. [facility], , 02/27/2025 11:25 AM
[2025-02-27] MEDS: KETOROLAC 15 MG/ML 1 ML VIAL IM STA (11:32)
[2025-02-27 11:55] VITALS: RESP 18
[2025-02-27 11:57] VITALS: BP 106/79; PULSE 88; TEMP 97.9
== END 2025-02-27 11:54 | disposition home or self-care (01) ==
LOC: EC 10:49
DX: S63.91XA Sprain of unspecified part of right wrist and hand, initial encounter (principal); F17.290 Nicotine dependence, other tobacco product, uncomplicated; Z91.013 Allergy to seafood; W22.09XA Striking against other stationary object, initial encounter
CPT/HCPCS: 73130; 99283; 96372; J1885